=== PATIENT | male | born 1950 | race Caucasian/White ===

== ENCOUNTER 2020-01-04 17:49 | Inpatient (IN) | payer MEDICARE, OTHER ==
[2020-01-04 23:19] VITALS: BP 158/98
[2020-01-04] MEDS ORDERED: Maalox 30 mL Cup PO PRN (23:19)
[2020-01-05] MEDS ORDERED: GLUCAGON HCl 1 MG KIT IM PRN (09:22)
--- NOTE | 2020-01-05 09:59 | Psychiatric Evaluation ---
DATE OF SERVICE: 01/04/2020 PROGRESS NOTE IDENTIFYING DATA: The patient is a 69-year-old male, resident of [facility]. Information obtained by directly interviewing the patient as well as reviewing the admission papers and they are reliable. JUSTIFICATION OF HOSPITALIZATION: The patient is admitted here for acute depression. CHIEF COMPLAINT: "I don't know. I am feeling down." HISTORY OF PRESENT ILLNESS: This is the first psychiatric hospitalization to [facility] for this patient from [facility]. The patient is reported to have been feeling depressed since he has CVA on the right side. The patient was reported to have been feeling depressed, isolative, withdrawn, and has not been able to take care of, able to participate in his ADLs. The patient has been medically cleared and has been sent over here. The patient has multiple medical problems including hypertension, diabetes and as mentioned CVA. Sleep and appetite prior to the hospitalization are reported to be poor. PAST PSYCHIATRIC HISTORY: None reported. MEDICAL HISTORY AND PHYSICAL EXAMINATION: Requested to be done by Dr. Vergara. SUBSTANCE ABUSE HISTORY: None. PHYSICAL OR SEXUAL ABUSE HISTORY: None. MENTAL STATUS EXAMINATION: The patient is a 69-year-old male, looking his stated age, superficially cooperative. Eye contact is noted to be fair. Mood is noted to be depressed. Affect is constricted. The patient denies any command hallucinations. Insight and judgment at this time are noted to be still impaired. Impulse control is noted to be limited. The patient feels frustrated and states that he cannot take care of all the medical issues. The patient has a low energy level. The patient is feeling frustrated. The patient has not been presenting with any suicidal plans at this time. No homicidal ideation is noted. The patient is fully aware that he is in the hospital. Attention span and concentration are noted to be fair at this time. DIAGNOSTIC IMPRESSION: Major depressive disorder, recurrent and severe. IMMEDIATE TREATMENT PLAN: The patient is going to be observed on inpatient unit, provided with supportive psychotherapy. The patient is going to be closely monitored and the patient is going to be started on low dose of Lexapro to help with the depression. Once stabilized, the patient is going to be discharged to the assisted facility for further followup. JOB# [id number]
[2020-01-05] MEDS: Nitroglycerin 0.2 mg/hr Tdm TD SCH ×2 (10:36→21:20)
[2020-01-05] MEDS: INSULIN LISPRO SLIDING SCALE 100 UNITS/ML UNIT SUBQ SCH ×3 (12:02→20:42)
[2020-01-05] MEDS: Escitalopram Oxalate 5 mg Tab PO SCH (13:28)
--- NOTE | 2020-01-05 16:36 | History & Physical ---
ADMIT DATE: 01/05/2020 REASON FOR CONSULTATION: Medical management and clearance. CHIEF COMPLAINT: The patient is admitted on inpatient unit. HISTORY OF PRESENT ILLNESS: This is a 69-year-old male with history of CAD, status post stent, history of stroke with right-sided weakness, diabetes, hypertension and COPD, admitted from nursing facility, cleared medically from [facility]. The patient denies any chest pain or shortness of breath at this time. PAST MEDICAL HISTORY: As mentioned in history of present illness. PAST SURGICAL HISTORY: Status post stent placement x 4 according to the patient. ALLERGIES: No known drug allergies. MEDICATIONS: The patient is on insulin sliding scale, aspirin, Dulcolax, artificial tears, Coreg, clonidine, Plavix, gabapentin, [place], lisinopril and nitroglycerin. FAMILY HISTORY: Noncontributory. SOCIAL HISTORY: The patient is an avid smoker. He used to drink heavily. No intravenous drug use. 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 REVIEW OF SYSTEMS: GENERAL: Complains not feeling well. HEENT: The patient with decreased vision and hard of hearing on the right side. LUNGS: Diagnosis of asthma and history of COPD. HEART: The patient with hypertension and CAD. ABDOMEN: No nausea, vomiting or pain. GENITOURINARY: The patient denies increased frequency or dysuria. NEUROLOGIC: No history of stroke. PSYCHIATRIC: As above. PHYSICAL EXAMINATION: VITAL SIGNS: Blood pressure 168/93, respiration 18, pulse 60, temperature 98.6. GENERAL: This is an elderly male, appears chronically ill. The patient was seen with ____ nurse. NECK: Supple. No mass. LUNGS: Equal breath sounds, otherwise clear to auscultation. HEART: Regular rate and rhythm with systolic ejection murmur. ABDOMEN: Soft, globular. EXTREMITIES: Positive excoriation. NEUROLOGIC: Limited. The patient ____ more so on the left compared to right ____ and refused. LABORATORY DATA: CBC and chem-20 within normal limits. ASSESSMENT: Chronic obstructive pulmonary disease, hypertension, diabetes, thrombocytopenia, platelets of 112, coronary artery disease, status post stent, history of stroke with right-sided weakness, and gait imbalance. Continue ADA diet and insulin sliding scale. He is currently on hypoglycemic medication. Continue aspirin and Plavix. We will continue fall precaution and a wheelchair. We will continue to follow with the patient closely. WILBUR: 01/05/2020 15:37 JOB# [id number]
[2020-01-05] MEDS: Hydrocodone/APAP 10 mg/325 mg Tab PO PRN (18:06)
[2020-01-05] MEDS: Peg-400/Propylene Ophth Soln 5 mL Bottle EACH EYE SCH (20:40)
[2020-01-06] MEDS: Hydrocodone/APAP 10 mg/325 mg Tab PO PRN (03:43)
[2020-01-06] MEDS: INSULIN LISPRO SLIDING SCALE 100 UNITS/ML UNIT SUBQ SCH ×2 (06:43→11:30)
[2020-01-06] MEDS: Escitalopram Oxalate 5 mg Tab PO SCH (08:23)
[2020-01-06] MEDS: Hydrocodone/APAP 5mg/325mg Tab PO PRN ×2 (08:24→21:04)
[2020-01-06] MEDS: Peg-400/Propylene Ophth Soln 5 mL Bottle EACH EYE SCH ×2 (08:27→20:26)
[2020-01-06] MEDS: Nitroglycerin 0.2 mg/hr Tdm TD SCH ×2 (09:30→21:37)
--- NOTE | 2020-01-06 13:16 | Internal Medicine Prog Note ---
Internal Medicine Subjective - Subjective Patient seen and examined:: with staff, chart reviewed Patient is:: awake, verbal, interactive, in wheelchair Per staff patient has:: no adverse event, no episodes of fall, tolerating meds Internal Medicine Objective - Results Recent Labs: Laboratory Last Values POC Glucose 96 MG/DL (70 - 105) 01/06/20 11:58 - Physical Exam Vitals and I&O: Vital Signs Temp 98.0 F 01/06/20 06:06 Pulse 64 01/06/20 09:30 Resp 17 01/06/20 08:00 BP 146/89 01/06/20 09:30 Pulse Ox 94 01/06/20 06:06 Intake & Output 01/05/20 01/06/20 01/06/20 18:59 06:59 18:59 Intake Total 1200 360 Output Total 1 Balance 1200 359 Intake: Oral 1200 360 Output: Urine/Stool Mix 1 Other: # Voids 1 # Bowel Movements 1 0 Active Medications: Current Medications Acetaminophen (Tylenol) 650 mg PO Q4HR PRN PRN Reason: Temperature Above 100 Stop: 03/04/20 23:18 Acetaminophen/Hydrocodone Bitart ([place] 10 Mg/325 Mg) 1 tab PO Q4H PRN PRN Reason: Severe Pain (Scale 7-10) Stop: 03/05/20 09:16 Last Admin: 01/06/20 03:43 Dose: 1 tab Acetaminophen/Hydrocodone Bitart ([place] 5mg/325mg) 1 tab PO Q6H PRN PRN Reason: moderate pain (scale 4-6) Stop: 03/05/20 09:16 Last Admin: 01/06/20 08:24 Dose: 1 tab Al Hydrox/Mg Hydrox/Simethicone (Maalox) 30 ml PO Q4HR PRN PRN Reason: GI DISTRESS Stop: 03/04/20 23:18 Aspirin (Ecotrin) 81 mg PO DAILY GITA Stop: 03/06/20 08:59 Last Admin: 01/06/20 08:23 Dose: 81 mg Bisacodyl (Dulcolax 10 Mg Supp) 10 mg RC Q12HR PRN PRN Reason: Constipation Stop: 03/05/20 09:16 Carvedilol (Coreg) 3.125 mg PO BID [facility] Stop: 03/05/20 09:29 Last Admin: 01/06/20 08:24 Dose: 3.125 mg Clopidogrel Bisulfate (Plavix) 75 mg PO DAILY [facility] Stop: 03/05/20 09:29 Last Admin: 01/06/20 08:23 Dose: 75 mg Dextrose (Glutose 40%) 18.75 gm PO PRN PRN PRN Reason: BS Below 70 if tolerate po Stop: 03/05/20 09:21 Escitalopram Oxalate (Lexapro) 5 mg PO DAILY [facility]; Protocol Stop: 03/05/20 11:59 Last Admin: 01/06/20 08:23 Dose: 5 mg Gabapentin (Neurontin) 100 mg PO TID [facility] Stop: 03/05/20 09:29 Last Admin: 01/06/20 08:23 Dose: 100 mg Glucagon (Glucagen) 1 mg IM PRN PRN PRN Reason: BS Below 70 if not tolerate po Stop: 03/05/20 09:21 Ibuprofen (Motrin) 800 mg PO BID PRN PRN Reason: Pain (Mild 1-3) Stop: 03/05/20 15:23 Last Admin: 01/05/20 16:48 Dose: 800 mg Insulin Human Lispro (Humalog Insulin Sliding Scale) 0 units SUBQ ACHS [facility]; Protocol Stop: 03/05/20 11:29 Last Admin: 01/06/20 11:30 Dose: Not Given Lisinopril (Zestril) 10 mg PO BID [facility] Stop: 03/05/20 09:29 Last Admin: 01/06/20 08:25 Dose: 10 mg Loperamide HCl (Imodium) 4 mg PO Q4HR PRN PRN Reason: Diarrhea Stop: 03/05/20 15:22 Lorazepam (Ativan) 0.5 mg PO Q4HR PRN; Protocol PRN Reason: Anxiety Stop: 02/03/20 23:18 Nitroglycerin (Transderm-Nitro) 1 patch TD Q12H [facility] Stop: 03/05/20 09:29 Last Admin: 01/06/20 09:30 Dose: 1 patch Propylene Glycol (Systane Ophth Soln) 1 drop EACH EYE Q12HR [facility] Stop: 03/05/20 20:59 Zolpidem Tartrate (Ambien) 5 mg PO HS PRN PRN Reason: Insomnia Stop: 03/04/20 23:18 General: demented HEENT: NC/AT, PERRLA Neck: Supple, No JVD, No thyromegaly Lungs: CTAB Cardiovascular: RRR, Normal S1, Normal S2 Abdomen: soft, globular, positive bowel sound Extremities: excoriation, contracture Neurological: unsteady Internal Medicine Assmt/Plan - Assessment Assessment: ASSESSMENT: Chronic obstructive pulmonary disease, hypertension, diabetes, thrombocytopenia, platelets of 112, coronary artery disease, status post stent, history of stroke with right-sided weakness, and gait imbalance. - Plan Plan: plan Continue ADA diet and insulin sliding scale. He is currently on hypoglycemic medication. Continue aspirin and Plavix. We will continue fall precaution and a wheelchair. We will continue to follow with the patient closely.
--- NOTE | 2020-01-06 18:29 | Progress Notes ---
DATE: 01/06/2020 PSYCHIATRIC PROGRESS NOTE SUBJECTIVE: Staff was spoken to. The patient is interviewed. Mood is noted to be depressed. Affect is constricted. The patient is isolative and withdrawn. The patient's coping skills are noted to be very poor. The patient is stating that he has been having electric shock sensations in his right hand. The patient is stating this has been going after his stroke. Coping skills are noted to be very poor. The patient has been having difficult time to cope with the stress. The patient has not been presenting with any suicidal tendencies today, but the patient feels frustrated. ASSESSMENT: The patient is depressed. PLAN: To continue the patient with the current medications. I encouraged the patient to verbalize the concerns rather than to act out. JOB# [id number]
[2020-01-07] MEDS: INSULIN LISPRO SLIDING SCALE 100 UNITS/ML UNIT SUBQ SCH ×3 (06:34→16:48)
[2020-01-07] MEDS: Escitalopram Oxalate 5 mg Tab PO SCH (08:49)
[2020-01-07] MEDS: Nitroglycerin 0.2 mg/hr Tdm TD SCH ×2 (09:49→21:17)
--- NOTE | 2020-01-07 09:58 | Internal Medicine Prog Note ---
Internal Medicine Subjective - Subjective Patient seen and examined:: with staff, chart reviewed Patient is:: awake, verbal, interactive, in wheelchair Per staff patient has:: no adverse event, no episodes of fall, tolerating meds Internal Medicine Objective - Results Recent Labs: Laboratory Last Values POC Glucose 71 MG/DL (70 - 105) 01/07/20 05:32 - Physical Exam Vitals and I&O: Vital Signs Temp 98.1 F 01/07/20 06:39 Pulse 64 01/07/20 09:49 Resp 18 01/07/20 06:39 BP 162/76 01/07/20 09:49 Pulse Ox 96 01/07/20 06:39 Intake & Output 01/06/20 01/07/20 01/07/20 18:59 06:59 18:59 Intake Total 960 480 Output Total 450 Balance 960 30 Intake: Oral 960 480 Output: Urine 450 Other: # Voids 4 1 # Bowel Movements 1 Active Medications: Current Medications Acetaminophen (Tylenol) 650 mg PO Q4HR PRN PRN Reason: Temperature Above 100 Stop: 03/04/20 23:18 Acetaminophen/Hydrocodone Bitart ([place] 10 Mg/325 Mg) 1 tab PO Q4H PRN PRN Reason: Severe Pain (Scale 7-10) Stop: 03/05/20 09:16 Last Admin: 01/06/20 03:43 Dose: 1 tab Acetaminophen/Hydrocodone Bitart ([place] 5mg/325mg) 1 tab PO Q6H PRN PRN Reason: moderate pain (scale 4-6) Stop: 03/05/20 09:16 Last Admin: 01/06/20 21:04 Dose: 1 tab Al Hydrox/Mg Hydrox/Simethicone (Maalox) 30 ml PO Q4HR PRN PRN Reason: GI DISTRESS Stop: 03/04/20 23:18 Aspirin (Ecotrin) 81 mg PO DAILY [facility] Stop: 03/06/20 08:59 Last Admin: 01/07/20 08:47 Dose: 81 mg Bisacodyl (Dulcolax 10 Mg Supp) 10 mg RC Q12HR PRN PRN Reason: Constipation Stop: 03/05/20 09:16 Carvedilol (Coreg) 3.125 mg PO BID [facility] Stop: 03/05/20 09:29 Last Admin: 01/07/20 08:47 Dose: 3.125 mg Clopidogrel Bisulfate (Plavix) 75 mg PO DAILY [facility] Stop: 03/05/20 09:29 Last Admin: 01/07/20 08:49 Dose: 75 mg Dextrose (Glutose 40%) 18.75 gm PO PRN PRN PRN Reason: BS Below 70 if tolerate po Stop: 03/05/20 09:21 Escitalopram Oxalate (Lexapro) 5 mg PO DAILY [facility]; Protocol Stop: 03/05/20 11:59 Last Admin: 01/07/20 08:49 Dose: 5 mg Gabapentin (Neurontin) 100 mg PO TID [facility] Stop: 03/05/20 09:29 Last Admin: 01/07/20 08:50 Dose: 100 mg Glucagon (Glucagen) 1 mg IM PRN PRN PRN Reason: BS Below 70 if not tolerate po Stop: 03/05/20 09:21 Ibuprofen (Motrin) 800 mg PO BID PRN PRN Reason: Pain (Mild 1-3) Stop: 03/05/20 15:23 Last Admin: 01/05/20 16:48 Dose: 800 mg Insulin Human Lispro (Humalog Insulin Sliding Scale) 0 units SUBQ AC [facility]; Protocol Stop: 03/07/20 07:29 Last Admin: 01/07/20 06:34 Dose: Not Given Lisinopril (Zestril) 10 mg PO BID [facility] Stop: 03/05/20 09:29 Last Admin: 01/07/20 08:50 Dose: 10 mg Loperamide HCl (Imodium) 4 mg PO Q4HR PRN PRN Reason: Diarrhea Stop: 03/05/20 15:22 Lorazepam (Ativan) 0.5 mg PO Q4HR PRN; Protocol PRN Reason: Anxiety Stop: 02/03/20 23:18 Nitroglycerin (Transderm-Nitro) 1 patch TD Q12H [facility] Stop: 03/05/20 09:29 Last Admin: 01/07/20 09:49 Dose: 1 patch Propylene Glycol (Systane Ophth Soln) 1 drop EACH EYE Q12HR [facility] Stop: 03/05/20 20:59 Last Admin: 01/06/20 20:26 Dose: 1 drop Zolpidem Tartrate (Ambien) 5 mg PO HS PRN PRN Reason: Insomnia Stop: 03/04/20 23:18 General: demented HEENT: NC/AT, PERRLA Neck: Supple, No JVD, No thyromegaly Lungs: CTAB Cardiovascular: RRR, Normal S1, Normal S2 Abdomen: soft, globular, positive bowel sound Extremities: excoriation, contracture Neurological: unsteady Internal Medicine Assmt/Plan - Assessment Assessment: ASSESSMENT: Chronic obstructive pulmonary disease, hypertension, diabetes, thrombocytopenia, platelets of 112, coronary artery disease, status post stent, history of stroke with right-sided weakness, and gait imbalance. - Plan Plan: plan Continue ADA diet and insulin sliding scale. He is currently on hypoglycemic medication. Continue aspirin and Plavix. We will continue fall precaution and a wheelchair. We will continue to follow with the patient closely. Nutritional Asmnt/Malnutr-PDOC - Dietary Evaluation Malnutrition Findings (Please click <Entered> for more info): Nutritional Asmnt/Malnutrition Start: 01/07/20 09: 16 Text: Status: Active Freq: Protocol: Document 01/07/20 09:30 [email or web address] (Rec: 01/07/20 09:36 MMULHERN ADOLFO- [email or web address]) Nutritional Asmnt/Malnutrition Patient General Information Nutritional Screening Moderate Risk Diagnosis Psychosis Pertinent Medical Hx/Surgical Hx hypertension, diabetes, depression, CVA Subjective Information Patient was admitted from [facility]. Per nursing notes, patient is depressed and withdrawn. Current Diet Order/ Nutrition Support Mechanical soft, 60gm CCHO, ROSA MARIA Patient / S.O Not Indicated Pertinent Medications maalox, dulcolax, Humalog, imodium Pertinent Labs WNL Nutritional Hx/Data Height 1.65 m Height (Calculated Centimeters) 165.1 Current Weight (lbs) 106.141 kg Weight (Calculated Kilograms) 106.1 Weight (Calculated Grams) 881432.6 [place] Body Weight 136 % [place] Body Weight 172 Body Mass Index (BMI) 38.9 Recent Weight Change No Weight Status Obese GI Symptoms GI Symptoms None Last BM 2/7 x 1 Difficult in: None Food Allergies No Cultural/Ethnic/Mandaen Belief none indicated Usual diet at home unknown Skin Integrity/Comment: Jesus Perez Current %PO Good (75-100%) Estimated Nutritional Goals BEE in Kcals: Adj wt of IBW Calories/Kcals/Kg 72.9kg Adj BW Kcals Calculated ~3624-7496 kcal/day (25-30 kcal/kg) Protein: Adj wt of IBW Fluid: ml ~3031-0391 kcal/day (1 ml/kcal ) Nutritional Problem No current Nutrition Prob Problem No nutrition diagnosis at this time Intervention/Recommendation Comments 1. Continue mechanical soft, 60 gm CCHO, ROSA MARIA diet as tolerated by patient. Expected Outcomes/Goals Expected Outcomes/Goals Oral intake >75% of meals, weight stable or trend toward IBW, nutrition related labs WNl F/U LR 01/14
--- NOTE | 2020-01-07 10:02 | Consultation ---
DATE OF CONSULTATION: 01/06/2020 REFERRING PHYSICIAN: Ashish Benavides M.D. TYPE OF CONSULTATION: Psychology. HISTORY OF PRESENT ILLNESS: The patient is a 69-year-old male. The patient is a resident of [facility]. The following is by review of the medical record as well as by the patient's self report. The patient is being admitted for acute depression. Upon interview, the patient states that he is feeling very down and does not know why he feels this way. The staff at the patient's facility reports that he had become very withdrawn and isolative and unable to take care of himself and participate in his ADLs. The patient recently had a CVA on the right side and apparently has been feeling more depressed since this medical event. The patient denied any suicidal ideation, plan or intention at the time of this clinical interview. PAST MEDICAL HISTORY: Please see history and physical by Dr. Vergara. PAST PSYCHIATRIC HISTORY: The patient has a history of depression. The patient is under the care of Dr. Benavides at his placement. SUBSTANCE ABUSE HISTORY: The patient denied any history of alcohol, tobacco or illicit drug use. PSYCHOSOCIAL HISTORY: The patient states that he is and has a daughter named, Annemarie, who is very involved in his care. The patient states that he was raised [employer]al and continues to practice that nondenominational. The patient states he is a high school graduate. The patient did not give any occupational history. The patient is agreeing to return to his placement. The patient states no current legal problems and no physical or sexual abuse history. MENTAL STATUS EXAMINATION: The patient appears to be his stated age. The patient's attitude is cooperative. Eye contact is fair to poor. Speech is spontaneous. Mood is depressed. Affect is depressogenic. Thought process shows to be linear and logical. The patient seems to be frustrated during the clinical interview process. The patient complained of poor sleep and poor appetite. He denied any auditory or visual hallucinations or any delusions. The patient's behavior has been withdrawn and isolative, as well as amotivated and anhedonic. The patient denied any suicidal ideation, plan or intention at this time. Impulse control is adequate. Concentration is fair. Sensorium is alert and oriented to person and place. The patient's memory seems to be intact for immediate dimension; however, short term dimension needs further evaluation. Long-term memory seems to be grossly intact. The patient did not participate in the interpretation of proverbs. Insight is poor. Judgment is compromised. DIAGNOSTIC IMPRESSION AXIS I: Major depressive disorder, recurrent, severe. AXIS II: Deferred. AXIS III: Per Dr. Vergara. TREATMENT PLAN: The patient has been seen by Dr. Ward for psychiatric evaluation and for the management of the patient's psychotropic medications. We will provide supportive psychotherapy to include cognitive behavioral therapy to reduce the patient's depression if the patient is able to participate in this type of therapeutic interaction. We will provide insight oriented therapy as well as coping strategies for phase of life issues to assist the patient in adjusting to his current circumstances. We will provide motivational enhancement for the patient to become compliant and stay compliant with all aspects of his care and treatment. We will provide a daily opportunity to assess for any suicidal ideation, plan or intention and for the patient to verbally contract for safety. We will follow up in 2-3 days to continue this treatment. Thank you Dr. Benavides and Dr. Ward for this consult and the opportunity to participate with you in this patient's care. JOB# [id number] GEOVANI
--- NOTE | 2020-01-07 13:34 | Progress Notes ---
DATE: 01/07/2020 PSYCHIATRIC PROGRESS NOTE SUBJECTIVE: Staff was spoken to. The patient is interviewed. Mood is noted to be depressed. Affect is constricted. The patient is isolative and withdrawn. Coping skills are noted to be very poor. The patient has been preoccupied with his radiating pain in the right hand. Coping skills at this time are noted to be very poor. The patient is not suicidal, but the patient feels frustrated with the multiple medical problems. ASSESSMENT: The patient is still depressed. PLAN: To continue the patient with the supportive therapy, encouraged the patient to verbalize the concerns rather than to act out. [facility]# [id number]
[2020-01-07] MEDS: Peg-400/Propylene Ophth Soln 5 mL Bottle EACH EYE SCH ×2 (13:52→21:18)
[2020-01-08] MEDS: INSULIN LISPRO SLIDING SCALE 100 UNITS/ML UNIT SUBQ SCH ×3 (06:44→16:30)
[2020-01-08] MEDS: Nitroglycerin 0.2 mg/hr Tdm TD SCH ×2 (08:38→20:55)
[2020-01-08] MEDS: Escitalopram Oxalate 5 mg Tab PO SCH (08:38)
[2020-01-08] MEDS: Peg-400/Propylene Ophth Soln 5 mL Bottle EACH EYE SCH ×2 (08:43→20:58)
--- NOTE | 2020-01-08 10:52 | Progress Notes ---
DATE: 01/08/2020 PSYCHIATRIC PROGRESS NOTE SUBJECTIVE: Staff was spoken to. The patient is interviewed. Mood is noted to be depressed. Affect is constricted. The patient is isolative and withdrawn. The patient's blood pressure is running high. Coping skills at this time are noted to be very poor. Sleep and appetite also noted to be very poor. The patient has been having difficult time to cope with the stress. No side effects to the medications are noted at this time. The patient is currently on Lexapro and has been able to tolerate. ASSESSMENT: The patient is still depressed. PLAN: To continue the patient with the supportive therapy and followup. JOB# [id number]
--- NOTE | 2020-01-08 19:19 | Internal Medicine Prog Note ---
Internal Medicine Subjective - Subjective Patient seen and examined:: with staff, chart reviewed Patient is:: awake, verbal, interactive, in wheelchair Per staff patient has:: no adverse event, no episodes of fall, tolerating meds Internal Medicine Objective - Results Recent Labs: Laboratory Last Values POC Glucose 133 MG/DL (70 - 105) H 01/08/20 16:46 - Physical Exam Vitals and I&O: Vital Signs Temp 99.8 F 01/08/20 14:00 Pulse 56 01/08/20 17:08 Resp 17 01/08/20 14:00 BP 154/93 01/08/20 17:08 Pulse Ox 96 01/08/20 14:00 Intake & Output 01/08/20 01/08/20 01/09/20 06:59 18:59 06:59 Intake Total 240 800 Output Total 600 Balance 240 200 Intake: Oral 240 800 Output: Urine 600 Other: # Voids 1 # Bowel Movements 0 Active Medications: Current Medications Acetaminophen (Tylenol) 650 mg PO Q4HR PRN PRN Reason: Temperature Above 100 Stop: 03/04/20 23:18 Last Admin: 01/08/20 10:33 Dose: 650 mg Acetaminophen/Hydrocodone Bitart ([place] 10 Mg/325 Mg) 1 tab PO Q4H PRN PRN Reason: Severe Pain (Scale 7-10) Stop: 03/05/20 09:16 Last Admin: 01/06/20 03:43 Dose: 1 tab Acetaminophen/Hydrocodone Bitart ([place] 5mg/325mg) 1 tab PO Q6H PRN PRN Reason: moderate pain (scale 4-6) Stop: 03/05/20 09:16 Last Admin: 01/06/20 21:04 Dose: 1 tab Al Hydrox/Mg Hydrox/Simethicone (Maalox) 30 ml PO Q4HR PRN PRN Reason: GI DISTRESS Stop: 03/04/20 23:18 Aspirin (Ecotrin) 81 mg PO DAILY [facility] Stop: 03/06/20 08:59 Last Admin: 01/08/20 08:43 Dose: 81 mg Bisacodyl (Dulcolax 10 Mg Supp) 10 mg RC Q12HR PRN PRN Reason: Constipation Stop: 03/05/20 09:16 Carvedilol (Coreg) 6.25 mg PO BID [facility] Stop: 03/08/20 13:44 Last Admin: 01/08/20 17:06 Dose: 6.25 mg Clopidogrel Bisulfate (Plavix) 75 mg PO DAILY [facility] Stop: 03/05/20 09:29 Last Admin: 01/08/20 08:37 Dose: 75 mg Dextrose (Glutose 40%) 18.75 gm PO PRN PRN PRN Reason: BS Below 70 if tolerate po Stop: 03/05/20 09:21 Escitalopram Oxalate (Lexapro) 5 mg PO DAILY [facility]; Protocol Stop: 03/05/20 11:59 Last Admin: 01/08/20 08:38 Dose: 5 mg Gabapentin (Neurontin) 100 mg PO TID [facility] Stop: 03/05/20 09:29 Last Admin: 01/08/20 13:54 Dose: 100 mg Glucagon (Glucagen) 1 mg IM PRN PRN PRN Reason: BS Below 70 if not tolerate po Stop: 03/05/20 09:21 Ibuprofen (Motrin) 800 mg PO BID PRN PRN Reason: Pain (Mild 1-3) Stop: 03/05/20 15:23 Last Admin: 01/05/20 16:48 Dose: 800 mg Insulin Human Lispro (Humalog Insulin Sliding Scale) 0 units SUBQ AC [facility]; Protocol Stop: 03/07/20 07:29 Last Admin: 01/08/20 11:30 Dose: Not Given Lisinopril (Zestril) 10 mg PO BID [facility] Stop: 03/05/20 09:29 Last Admin: 01/08/20 17:08 Dose: 10 mg Loperamide HCl (Imodium) 4 mg PO Q4HR PRN PRN Reason: Diarrhea Stop: 03/05/20 15:22 Lorazepam (Ativan) 0.5 mg PO Q4HR PRN; Protocol PRN Reason: Anxiety Stop: 02/03/20 23:18 Nitroglycerin (Transderm-Nitro) 1 patch TD Q12H [facility] Stop: 03/05/20 09:29 Last Admin: 01/08/20 08:38 Dose: 1 patch Propylene Glycol (Systane Ophth Soln) 1 drop EACH EYE Q12HR [facility] Stop: 03/05/20 20:59 Last Admin: 01/08/20 08:43 Dose: 1 drop Zolpidem Tartrate (Ambien) 5 mg PO HS PRN PRN Reason: Insomnia Stop: 03/04/20 23:18 Last Admin: 01/07/20 21:18 Dose: 5 mg General: demented HEENT: NC/AT, PERRLA Neck: Supple, No JVD, No thyromegaly Lungs: CTAB Cardiovascular: RRR, Normal S1, Normal S2 Abdomen: soft, globular, positive bowel sound Extremities: excoriation, contracture Neurological: unsteady Internal Medicine Assmt/Plan - Assessment Assessment: ASSESSMENT: Chronic obstructive pulmonary disease, hypertension, diabetes, thrombocytopenia, platelets of 112, coronary artery disease, status post stent, history of stroke with right-sided weakness, and gait imbalance. - Plan Plan: plan Continue ADA diet and insulin sliding scale. He is currently on hypoglycemic medication. Continue aspirin and Plavix. We will continue fall precaution and a wheelchair. will titrate coreg up. We will continue to follow with the patient closely. Nutritional Asmnt/Malnutr-PDOC - Dietary Evaluation Malnutrition Findings (Please click <Entered> for more info): Nutritional Asmnt/Malnutrition Start: 01/07/20 09: 16 Text: Status: Complete Freq: Protocol: Document 01/07/20 09:30 MMULN (Rec: 01/07/20 09:36 MMULHERN ADOLFO- [email or web address]) Nutritional Asmnt/Malnutrition Patient General Information Nutritional Screening Moderate Risk Diagnosis Psychosis Pertinent Medical Hx/Surgical Hx hypertension, diabetes, depression, CVA Subjective Information Patient was admitted from [facility]. Per nursing notes, patient is depressed and withdrawn. Patient eating lunch at time of visit. Tolerating current diet with adequate intake. Current Diet Order/ Nutrition Support Mechanical soft, 60gm CCHO, ROSA MARIA Patient / S.O Not Indicated Pertinent Medications maalox, dulcolax, Humalog, imodium Pertinent Labs WNL Nutritional Hx/Data Height 1.65 m Height (Calculated Centimeters) 165.1 Current Weight (lbs) 106.141 kg Weight (Calculated Kilograms) 106.1 Weight (Calculated Grams) 354677.6 [place] Body Weight 136 % [place] Body Weight 172 Body Mass Index (BMI) 38.9 Recent Weight Change No Weight Status Obese GI Symptoms GI Symptoms None Last BM 2/7 x 1 Difficult in: None Food Allergies No Cultural/Ethnic/Pentecostalism Belief none indicated Usual diet at home unknown Skin Integrity/Comment: Jesus Perez Current %PO Good (75-100%) Estimated Nutritional Goals BEE in Kcals: Adj wt of IBW Calories/Kcals/Kg 72.9kg Adj BW Kcals Calculated ~4717-0943 kcal/day (25-30 kcal/kg) Protein: Adj wt of IBW Protein g/k-1.2 gm/kg Protein Calculated ~70-85gm/day Fluid: ml ~4591-8957 kcal/day (1 ml/kcal ) Nutritional Problem No current Nutrition Prob Problem No nutrition diagnosis at this time Intervention/Recommendation Comments 1. Continue mechanical soft, 60 gm CCHO, ROSA MARIA diet as tolerated by patient. Expected Outcomes/Goals Expected Outcomes/Goals Oral intake >75% of meals, weight stable or trend toward IBW, nutrition related labs WNl F/U LR 01/14-
[2020-01-09] MEDS: INSULIN LISPRO SLIDING SCALE 100 UNITS/ML UNIT SUBQ SCH ×3 (06:31→16:48)
[2020-01-09] MEDS: Escitalopram Oxalate 5 mg Tab PO SCH (08:10)
[2020-01-09] MEDS: Peg-400/Propylene Ophth Soln 5 mL Bottle EACH EYE SCH ×2 (08:18→20:42)
[2020-01-09] MEDS: Nitroglycerin 0.2 mg/hr Tdm TD SCH ×2 (10:02→22:00)
--- NOTE | 2020-01-09 12:59 | Internal Medicine Prog Note ---
Internal Medicine Subjective - Subjective Patient seen and examined:: with staff, chart reviewed Patient is:: awake, verbal, interactive, in wheelchair Per staff patient has:: no adverse event, no episodes of fall, tolerating meds Internal Medicine Objective - Results Recent Labs: Laboratory Last Values POC Glucose 92 MG/DL (70 - 105) 01/09/20 11:56 - Physical Exam Vitals and I&O: Vital Signs Temp 99.3 F 01/08/20 19:56 Pulse 73 01/09/20 10:02 Resp 17 01/09/20 08:00 BP 149/82 01/09/20 10:02 Pulse Ox 93 01/08/20 19:56 Intake & Output 01/08/20 01/09/20 01/09/20 18:59 06:59 18:59 Intake Total 800 240 Output Total 600 Balance 200 240 Intake: Oral 800 240 Output: Urine 600 Other: # Voids 2 # Bowel Movements 0 Active Medications: Current Medications Acetaminophen (Tylenol) 650 mg PO Q4HR PRN PRN Reason: Temperature Above 100 Stop: 03/04/20 23:18 Last Admin: 01/08/20 10:33 Dose: 650 mg Acetaminophen/Hydrocodone Bitart ([place] 10 Mg/325 Mg) 1 tab PO Q4H PRN PRN Reason: Severe Pain (Scale 7-10) Stop: 03/05/20 09:16 Last Admin: 01/06/20 03:43 Dose: 1 tab Acetaminophen/Hydrocodone Bitart ([place] 5mg/325mg) 1 tab PO Q6H PRN PRN Reason: moderate pain (scale 4-6) Stop: 03/05/20 09:16 Last Admin: 01/06/20 21:04 Dose: 1 tab Al Hydrox/Mg Hydrox/Simethicone (Maalox) 30 ml PO Q4HR PRN PRN Reason: GI DISTRESS Stop: 03/04/20 23:18 Aspirin (Ecotrin) 81 mg PO DAILY [facility] Stop: 03/06/20 08:59 Last Admin: 01/09/20 08:10 Dose: 81 mg Bisacodyl (Dulcolax 10 Mg Supp) 10 mg RC Q12HR PRN PRN Reason: Constipation Stop: 03/05/20 09:16 Carvedilol (Coreg) 6.25 mg PO BID [facility] Stop: 03/08/20 13:44 Last Admin: 01/09/20 08:16 Dose: 6.25 mg Clopidogrel Bisulfate (Plavix) 75 mg PO DAILY [facility] Stop: 03/05/20 09:29 Last Admin: 01/09/20 08:10 Dose: 75 mg Dextrose (Glutose 40%) 18.75 gm PO PRN PRN PRN Reason: BS Below 70 if tolerate po Stop: 03/05/20 09:21 Escitalopram Oxalate (Lexapro) 5 mg PO DAILY [facility]; Protocol Stop: 03/05/20 11:59 Last Admin: 01/09/20 08:10 Dose: 5 mg Gabapentin (Neurontin) 100 mg PO TID [facility] Stop: 03/05/20 09:29 Last Admin: 01/09/20 08:10 Dose: 100 mg Glucagon (Glucagen) 1 mg IM PRN PRN PRN Reason: BS Below 70 if not tolerate po Stop: 03/05/20 09:21 Ibuprofen (Motrin) 800 mg PO BID PRN PRN Reason: Pain (Mild 1-3) Stop: 03/05/20 15:23 Last Admin: 01/05/20 16:48 Dose: 800 mg Insulin Human Lispro (Humalog Insulin Sliding Scale) 0 units SUBQ AC [facility]; Protocol Stop: 03/07/20 07:29 Last Admin: 01/09/20 11:45 Dose: Not Given Lisinopril (Zestril) 10 mg PO BID [facility] Stop: 03/05/20 09:29 Last Admin: 01/09/20 08:15 Dose: 10 mg Loperamide HCl (Imodium) 4 mg PO Q4HR PRN PRN Reason: Diarrhea Stop: 03/05/20 15:22 Lorazepam (Ativan) 0.5 mg PO Q4HR PRN; Protocol PRN Reason: Anxiety Stop: 02/03/20 23:18 Nitroglycerin (Transderm-Nitro) 1 patch TD Q12H [facility] Stop: 03/05/20 09:29 Last Admin: 01/09/20 10:02 Dose: 1 patch Propylene Glycol (Systane Ophth Soln) 1 drop EACH EYE Q12HR [facility] Stop: 03/05/20 20:59 Last Admin: 01/09/20 08:18 Dose: 1 drop Zolpidem Tartrate (Ambien) 5 mg PO HS PRN PRN Reason: Insomnia Stop: 03/04/20 23:18 Last Admin: 01/08/20 20:59 Dose: 5 mg General: demented HEENT: NC/AT, PERRLA Neck: Supple, No JVD, No thyromegaly Lungs: CTAB Cardiovascular: RRR, Normal S1, Normal S2 Abdomen: soft, globular, positive bowel sound Extremities: excoriation, contracture Neurological: unsteady Internal Medicine Assmt/Plan - Assessment Assessment: ASSESSMENT: Chronic obstructive pulmonary disease, hypertension, diabetes, thrombocytopenia, platelets of 112, coronary artery disease, status post stent, history of stroke with right-sided weakness, and gait imbalance. - Plan Plan: plan Continue ADA diet and insulin sliding scale. He is currently on hypoglycemic medication. Continue aspirin and Plavix. We will continue fall precaution and a wheelchair. will titrate coreg up. We will continue to follow with the patient closely. Nutritional Asmnt/Malnutr-PDOC - Dietary Evaluation Malnutrition Findings (Please click <Entered> for more info): Nutritional Asmnt/Malnutrition Start: 01/07/20 09: 16 Text: Status: Complete Freq: Protocol: Document 01/07/20 09:30 MMULN (Rec: 01/07/20 09:36 MMULHERN ADOLFO- FNS1) Nutritional Asmnt/Malnutrition Patient General Information Nutritional Screening Moderate Risk Diagnosis Psychosis Pertinent Medical Hx/Surgical Hx hypertension, diabetes, depression, CVA Subjective Information Patient was admitted from [facility]. Per nursing notes, patient is depressed and withdrawn. Patient eating lunch at time of visit. Tolerating current diet with adequate intake. Current Diet Order/ Nutrition Support Mechanical soft, 60gm CCHO, ROSA MARIA Patient / S.O Not Indicated Pertinent Medications maalox, dulcolax, Humalog, imodium Pertinent Labs WNL Nutritional Hx/Data Height 1.65 m Height (Calculated Centimeters) 165.1 Current Weight (lbs) 106.141 kg Weight (Calculated Kilograms) 106.1 Weight (Calculated Grams) 664880.6 [place] Body Weight 136 % [place] Body Weight 172 Body Mass Index (BMI) 38.9 Recent Weight Change No Weight Status Obese GI Symptoms GI Symptoms None Last BM 2/7 x 1 Difficult in: None Food Allergies No Cultural/Ethnic/Worship Belief none indicated Usual diet at home unknown Skin Integrity/Comment: Jesus Perez Current %PO Good (75-100%) Estimated Nutritional Goals BEE in Kcals: Adj wt of IBW Calories/Kcals/Kg 72.9kg Adj BW Kcals Calculated ~1126-9153 kcal/day (25-30 kcal/kg) Protein: Adj wt of IBW Protein g/k-1.2 gm/kg Protein Calculated ~70-85gm/day Fluid: ml ~8473-1115 kcal/day (1 ml/kcal ) Nutritional Problem No current Nutrition Prob Problem No nutrition diagnosis at this time Intervention/Recommendation Comments 1. Continue mechanical soft, 60 gm CCHO, ROSA MARIA diet as tolerated by patient. Expected Outcomes/Goals Expected Outcomes/Goals Oral intake >75% of meals, weight stable or trend toward IBW, nutrition related labs WNl F/U LR 01/14-
--- NOTE | 2020-01-10 00:05 | Progress Notes ---
DATE: 01/09/2020 PSYCHIATRIC PROGRESS NOTE SUBJECTIVE: Staff was spoken to. The patient is interviewed. Mood is noted to be irritable. Affect is constricted. Insight and judgment at this time are noted to be still impaired. Impulse control is noted to be limited. Coping skills are also noted to be limited. The patient has been having difficult time to cope with the stress. No side effects to the medications are noted. The patient is still complaining of pain in the arm. ASSESSMENT: The patient is still depressed. PLAN: To continue the patient with the supportive therapy and follow up. JOB# [id number]
[2020-01-10] MEDS: Hydrocodone/APAP 10 mg/325 mg Tab PO PRN ×2 (05:35→10:01)
[2020-01-10] MEDS: INSULIN LISPRO SLIDING SCALE 100 UNITS/ML UNIT SUBQ SCH ×2 (06:38→11:57)
[2020-01-10] MEDS: Nitroglycerin 0.2 mg/hr Tdm TD SCH ×2 (09:52→21:30)
[2020-01-10] MEDS: Escitalopram Oxalate 5 mg Tab PO SCH (09:54)
[2020-01-10] MEDS: Peg-400/Propylene Ophth Soln 5 mL Bottle EACH EYE SCH ×2 (09:58→20:58)
[2020-01-10] MEDS ORDERED: INSULIN LISPRO SLIDING SCALE 100 UNITS/ML UNIT SUBQ SCH (13:05)
--- NOTE | 2020-01-10 13:07 | Internal Medicine Prog Note ---
Internal Medicine Subjective - Subjective Patient seen and examined:: with staff, chart reviewed Patient is:: awake, verbal, interactive, in wheelchair Per staff patient has:: no adverse event, no episodes of fall, tolerating meds Internal Medicine Objective - Results Recent Labs: Laboratory Last Values POC Glucose 91 MG/DL (70 - 105) 01/10/20 05:56 - Physical Exam Vitals and I&O: Vital Signs Temp 98 F 01/10/20 06:01 Pulse 52 01/10/20 11:02 Resp 20 01/10/20 06:01 BP 178/96 01/10/20 11:02 Pulse Ox 96 01/10/20 06:01 Intake & Output 01/09/20 01/10/20 01/10/20 18:59 06:59 18:59 Intake Total 1000 120 Balance 1000 120 Intake: Oral 1000 120 Other: # Voids 4 3 # Bowel Movements 0 0 Active Medications: Current Medications Acetaminophen (Tylenol) 650 mg PO Q4HR PRN PRN Reason: Temperature Above 100 Stop: 03/04/20 23:18 Last Admin: 01/08/20 10:33 Dose: 650 mg Acetaminophen/Hydrocodone Bitart ([place] 10 Mg/325 Mg) 1 tab PO Q4H PRN PRN Reason: Severe Pain (Scale 7-10) Stop: 03/05/20 09:16 Last Admin: 01/10/20 10:01 Dose: 1 tab Acetaminophen/Hydrocodone Bitart ([place] 5mg/325mg) 1 tab PO Q6H PRN PRN Reason: moderate pain (scale 4-6) Stop: 03/05/20 09:16 Last Admin: 01/06/20 21:04 Dose: 1 tab Al Hydrox/Mg Hydrox/Simethicone (Maalox) 30 ml PO Q4HR PRN PRN Reason: GI DISTRESS Stop: 03/04/20 23:18 Aspirin (Ecotrin) 81 mg PO DAILY [facility] Stop: 03/06/20 08:59 Last Admin: 01/10/20 09:57 Dose: 81 mg Bisacodyl (Dulcolax 10 Mg Supp) 10 mg RC Q12HR PRN PRN Reason: Constipation Stop: 03/05/20 09:16 Carvedilol (Coreg) 3.25 mg PO BID [facility] Stop: 03/10/20 16:59 Clopidogrel Bisulfate (Plavix) 75 mg PO DAILY [facility] Stop: 03/05/20 09:29 Last Admin: 01/10/20 09:57 Dose: 75 mg Dextrose (Glutose 40%) 18.75 gm PO PRN PRN PRN Reason: BS Below 70 if tolerate po Stop: 03/05/20 09:21 Escitalopram Oxalate (Lexapro) 5 mg PO DAILY [facility]; Protocol Stop: 03/05/20 11:59 Last Admin: 01/10/20 09:54 Dose: 5 mg Gabapentin (Neurontin) 100 mg PO TID [facility] Stop: 03/05/20 09:29 Last Admin: 01/10/20 09:54 Dose: 100 mg Glucagon (Glucagen) 1 mg IM PRN PRN PRN Reason: BS Below 70 if not tolerate po Stop: 03/05/20 09:21 Ibuprofen (Motrin) 800 mg PO BID PRN PRN Reason: Pain (Mild 1-3) Stop: 03/05/20 15:23 Last Admin: 01/05/20 16:48 Dose: 800 mg Insulin Human Lispro (Humalog Insulin Sliding Scale) 0 units SUBQ AC [facility]; Protocol Stop: 03/07/20 07:29 Lisinopril (Zestril) 20 mg PO BID [facility] Stop: 03/10/20 16:59 Loperamide HCl (Imodium) 4 mg PO Q4HR PRN PRN Reason: Diarrhea Stop: 03/05/20 15:22 Lorazepam (Ativan) 0.5 mg PO Q4HR PRN; Protocol PRN Reason: Anxiety Stop: 02/03/20 23:18 Nitroglycerin (Transderm-Nitro) 1 patch TD Q12H [facility] Stop: 03/05/20 09:29 Last Admin: 01/10/20 09:52 Dose: 1 patch Propylene Glycol (Systane Ophth Soln) 1 drop EACH EYE Q12HR [facility] Stop: 03/05/20 20:59 Last Admin: 01/10/20 09:58 Dose: 1 drop Zolpidem Tartrate (Ambien) 5 mg PO HS PRN PRN Reason: Insomnia Stop: 03/04/20 23:18 Last Admin: 01/09/20 20:46 Dose: 5 mg General: demented HEENT: NC/AT, PERRLA Neck: Supple, No JVD, No thyromegaly Lungs: CTAB Cardiovascular: RRR, Normal S1, Normal S2 Abdomen: soft, globular, positive bowel sound Extremities: excoriation, contracture Neurological: unsteady Internal Medicine Assmt/Plan - Assessment Assessment: ASSESSMENT: Chronic obstructive pulmonary disease, hypertension, diabetes, thrombocytopenia, platelets of 112, coronary artery disease, status post stent, history of stroke with right-sided weakness, and gait imbalance. - Plan Plan: plan Continue ADA diet and insulin sliding scale. He is currently on hypoglycemic medication. Continue aspirin and Plavix. We will continue fall precaution and a wheelchair. will titrate coreg up. We will continue to follow with the patient closely. Nutritional Asmnt/Malnutr-PDOC - Dietary Evaluation Malnutrition Findings (Please click <Entered> for more info): Nutritional Asmnt/Malnutrition Start: 01/07/20 09: 16 Text: Status: Complete Freq: Protocol: Document 01/07/20 09:30 MMULHERN (Rec: 01/07/20 09:36 MMULHERN ADOLFO- FNS1) Nutritional Asmnt/Malnutrition Patient General Information Nutritional Screening Moderate Risk Diagnosis Psychosis Pertinent Medical Hx/Surgical Hx hypertension, diabetes, depression, CVA Subjective Information Patient was admitted from [facility]. Per nursing notes, patient is depressed and withdrawn. Patient eating lunch at time of visit. Tolerating current diet with adequate intake. Current Diet Order/ Nutrition Support Mechanical soft, 60gm CCHO, ROSA MARIA Patient / S.O Not Indicated Pertinent Medications maalox, dulcolax, Humalog, imodium Pertinent Labs WNL Nutritional Hx/Data Height 1.65 m Height (Calculated Centimeters) 165.1 Current Weight (lbs) 106.141 kg Weight (Calculated Kilograms) 106.1 Weight (Calculated Grams) 022009.6 [place] Body Weight 136 % [place] Body Weight 172 Body Mass Index (BMI) 38.9 Recent Weight Change No Weight Status Obese GI Symptoms GI Symptoms None Last BM 2/7 x 1 Difficult in: None Food Allergies No Cultural/Ethnic/Muslim Belief none indicated Usual diet at home unknown Skin Integrity/Comment: Jesus Perez Current %PO Good (75-100%) Estimated Nutritional Goals BEE in Kcals: Adj wt of IBW Calories/Kcals/Kg 72.9kg Adj BW Kcals Calculated ~4148-9076 kcal/day (25-30 kcal/kg) Protein: Adj wt of IBW Protein g/k-1.2 gm/kg Protein Calculated ~70-85gm/day Fluid: ml ~4628-7371 kcal/day (1 ml/kcal ) Nutritional Problem No current Nutrition Prob Problem No nutrition diagnosis at this time Intervention/Recommendation Comments 1. Continue mechanical soft, 60 gm CCHO, ROSA MARIA diet as tolerated by patient. Expected Outcomes/Goals Expected Outcomes/Goals Oral intake >75% of meals, weight stable or trend toward IBW, nutrition related labs WNl F/U LR 01/14-
--- NOTE | 2020-01-10 20:08 | Progress Notes ---
DATE: 01/09/2020 PSYCHOLOGY PROGRESS NOTE SUBJECTIVE: The patient is seen and is interviewed. Case is discussed with staff. The patient presents as less irritable this visit; however, the patient complained of pain in his right arm. The patient was not able to identify if this was a throbbing pain or constant pain. He was unable to assess fis pain on the pain scale, i.e., which number it might be. The patient requested to see the medical doctor. Nursing staff was informed. The patient is having difficulty coping with stress. OBJECTIVE: Mood is passive and disinterested. Affect is blunted. Thought process shows to be concrete with some confusion and singularly focused on the pain in his right arm. The patient denied any hallucinations or delusions. The patient has been compliant with his medication according to the staff. ASSESSMENT AND PLAN: The patient's depression persists. PLAN: We will continue supportive psychotherapy, which includes insight oriented therapy and cognitive behavioral therapy to reduce the patient's depression. We will provide coping strategies for phase of life issues. The patient states that he does use his shannan-based beliefs to help him cope. We will review this type of approach. We will encourage the patient to stay compliant with all aspects of his care and treatment. We will follow up in 2-3 days to continue the present treatment, if the patient remains on the unit and is able to demonstrate the capacity to benefit from psychology services. JOB# [id number] GEOVANI
[2020-01-11] MEDS: Hydrocodone/APAP 10 mg/325 mg Tab PO PRN ×2 (04:02→10:15)
[2020-01-11] MEDS: INSULIN LISPRO SLIDING SCALE 100 UNITS/ML UNIT SUBQ SCH (06:34)
[2020-01-11] MEDS: Peg-400/Propylene Ophth Soln 5 mL Bottle EACH EYE SCH ×2 (08:21→21:39)
[2020-01-11] MEDS: Nitroglycerin 0.2 mg/hr Tdm TD SCH ×2 (08:47→21:39)
--- NOTE | 2020-01-11 09:12 | Progress Notes ---
DATE: 01/10/2020 PSYCHIATRIC PROGRESS NOTE SUBJECTIVE: Staff was spoken to. The patient is interviewed. Mood is noted to be anxious. The patient continues to be isolative and withdrawn. The patient is still preoccupied with his electrical shock sensation ____. The patient has been stating that he has been trying to attend the groups at this time. No major side effects to the medications are noted. ASSESSMENT: The patient is still depressed. PLAN: Plan is to continue the patient with the supportive therapy and followup. JOB# [id number]
--- NOTE | 2020-01-11 13:21 | Internal Medicine Prog Note ---
Internal Medicine Subjective - Subjective Patient seen and examined:: with staff, chart reviewed Patient is:: awake, verbal, interactive, in wheelchair Per staff patient has:: no adverse event, no episodes of fall, tolerating meds Internal Medicine Objective - Results Recent Labs: Laboratory Last Values POC Glucose 81 MG/DL (70 - 105) 01/11/20 05:50 - Physical Exam Vitals and I&O: Vital Signs Temp 98.3 F 01/11/20 06:02 Pulse 52 01/11/20 08:47 Resp 20 01/11/20 06:02 BP 175/94 01/11/20 08:47 Pulse Ox 96 01/11/20 06:02 Intake & Output 01/10/20 01/11/20 01/11/20 18:59 06:59 18:59 Intake Total 600 120 Balance 600 120 Intake: Oral 600 120 Other: # Voids 3 # Bowel Movements 1 0 Active Medications: Current Medications Acetaminophen (Tylenol) 650 mg PO Q4HR PRN PRN Reason: Temperature Above 100 Stop: 03/04/20 23:18 Last Admin: 01/08/20 10:33 Dose: 650 mg Acetaminophen/Hydrocodone Bitart ([place] 10 Mg/325 Mg) 1 tab PO Q4H PRN PRN Reason: Severe Pain (Scale 7-10) Stop: 03/05/20 09:16 Last Admin: 01/11/20 10:15 Dose: 1 tab Acetaminophen/Hydrocodone Bitart ([place] 5mg/325mg) 1 tab PO Q6H PRN PRN Reason: moderate pain (scale 4-6) Stop: 03/05/20 09:16 Last Admin: 01/06/20 21:04 Dose: 1 tab Al Hydrox/Mg Hydrox/Simethicone (Maalox) 30 ml PO Q4HR PRN PRN Reason: GI DISTRESS Stop: 03/04/20 23:18 Aspirin (Ecotrin) 81 mg PO DAILY [facility] Stop: 03/06/20 08:59 Last Admin: 01/11/20 08:22 Dose: 81 mg Bisacodyl (Dulcolax 10 Mg Supp) 10 mg RC Q12HR PRN PRN Reason: Constipation Stop: 03/05/20 09:16 Carvedilol (Coreg) 3.125 mg PO BID [facility] Stop: 03/10/20 18:14 Last Admin: 01/11/20 08:22 Dose: 3.125 mg Clopidogrel Bisulfate (Plavix) 75 mg PO DAILY [facility] Stop: 03/05/20 09:29 Last Admin: 01/11/20 08:22 Dose: 75 mg Dextrose (Glutose 40%) 18.75 gm PO PRN PRN PRN Reason: BS Below 70 if tolerate po Stop: 03/05/20 09:21 Escitalopram Oxalate (Lexapro) 10 mg PO DAILY [facility]; Protocol Stop: 03/11/20 08:59 Last Admin: 01/11/20 08:47 Dose: 10 mg Gabapentin (Neurontin) 100 mg PO TID [facility] Stop: 03/05/20 09:29 Last Admin: 01/11/20 08:21 Dose: 100 mg Glucagon (Glucagen) 1 mg IM PRN PRN PRN Reason: BS Below 70 if not tolerate po Stop: 03/05/20 09:21 Ibuprofen (Motrin) 800 mg PO BID PRN PRN Reason: Pain (Mild 1-3) Stop: 03/05/20 15:23 Last Admin: 01/05/20 16:48 Dose: 800 mg Insulin Human Lispro (Humalog Insulin Sliding Scale) 0 units SUBQ QAM@0630 [facility] ; Protocol Stop: 03/11/20 06:29 Last Admin: 01/11/20 06:34 Dose: Not Given Lisinopril (Zestril) 20 mg PO BID [facility] Stop: 03/10/20 16:59 Last Admin: 01/11/20 08:22 Dose: 20 mg Loperamide HCl (Imodium) 4 mg PO Q4HR PRN PRN Reason: Diarrhea Stop: 03/05/20 15:22 Lorazepam (Ativan) 0.5 mg PO Q4HR PRN; Protocol PRN Reason: Anxiety Stop: 02/03/20 23:18 Nitroglycerin (Transderm-Nitro) 1 patch TD Q12H [facility] Stop: 03/05/20 09:29 Last Admin: 01/11/20 08:47 Dose: 1 patch Propylene Glycol (Systane Ophth Soln) 1 drop EACH EYE Q12HR [facility] Stop: 03/05/20 20:59 Last Admin: 01/11/20 08:21 Dose: 1 drop Zolpidem Tartrate (Ambien) 5 mg PO HS PRN PRN Reason: Insomnia Stop: 03/04/20 23:18 Last Admin: 01/09/20 20:46 Dose: 5 mg General: demented HEENT: NC/AT, PERRLA Neck: Supple, No JVD, No thyromegaly Lungs: CTAB Cardiovascular: RRR, Normal S1, Normal S2 Abdomen: soft, globular, positive bowel sound Extremities: excoriation, contracture Neurological: unsteady Internal Medicine Assmt/Plan - Assessment Assessment: ASSESSMENT: Chronic obstructive pulmonary disease, hypertension, diabetes, thrombocytopenia, platelets of 112, coronary artery disease, status post stent, history of stroke with right-sided weakness, and gait imbalance. - Plan Plan: plan Continue ADA diet and insulin sliding scale. He is currently on hypoglycemic medication. Continue aspirin and Plavix. We will continue fall precaution and a wheelchair. will titrate coreg up. We will continue to follow with the patient closely. Nutritional Asmnt/Malnutr-PDOC - Dietary Evaluation Malnutrition Findings (Please click <Entered> for more info): Nutritional Asmnt/Malnutrition Start: 01/07/20 09: 16 Text: Status: Complete Freq: Protocol: Document 01/07/20 09:30 MMMITESH (Rec: 01/07/20 09:36 MMULHERKam MATA- [email or web address]) Nutritional Asmnt/Malnutrition Patient General Information Nutritional Screening Moderate Risk Diagnosis Psychosis Pertinent Medical Hx/Surgical Hx hypertension, diabetes, depression, CVA Subjective Information Patient was admitted from [facility]. Per nursing notes, patient is depressed and withdrawn. Patient eating lunch at time of visit. Tolerating current diet with adequate intake. Current Diet Order/ Nutrition Support Mechanical soft, 60gm CCHO, ROSA MARIA Patient / S.O Not Indicated Pertinent Medications maalox, dulcolax, Humalog, imodium Pertinent Labs WNL Nutritional Hx/Data Height 1.65 m Height (Calculated Centimeters) 165.1 Current Weight (lbs) 106.141 kg Weight (Calculated Kilograms) 106.1 Weight (Calculated Grams) 691651.6 [place] Body Weight 136 % [place] Body Weight 172 Body Mass Index (BMI) 38.9 Recent Weight Change No Weight Status Obese GI Symptoms GI Symptoms None Last BM 2/7 x 1 Difficult in: None Food Allergies No Cultural/Ethnic/Holiness Belief none indicated Usual diet at home unknown Skin Integrity/Comment: Jesus Perez Current %PO Good (75-100%) Estimated Nutritional Goals BEE in Kcals: Adj wt of IBW Calories/Kcals/Kg 72.9kg Adj BW Kcals Calculated ~3849-5213 kcal/day (25-30 kcal/kg) Protein: Adj wt of IBW Protein g/k-1.2 gm/kg Protein Calculated ~70-85gm/day Fluid: ml ~6825-1074 kcal/day (1 ml/kcal ) Nutritional Problem No current Nutrition Prob Problem No nutrition diagnosis at this time Intervention/Recommendation Comments 1. Continue mechanical soft, 60 gm CCHO, ROSA MARIA diet as tolerated by patient. Expected Outcomes/Goals Expected Outcomes/Goals Oral intake >75% of meals, weight stable or trend toward IBW, nutrition related labs WNl F/U LR 01/14-
--- NOTE | 2020-01-11 13:39 | Progress Notes ---
DATE: 01/11/2020 PSYCHIATRIC PROGRESS NOTE SUBJECTIVE: Staff was spoken to. The patient is interviewed. Mood is noted to be anxious. The patient is still complaining of pain in the left forearm. The patient is stating that since the stroke, he has been having difficult time to cope with the stress. The patient is currently on escitalopram 5 mg, I am planning to increase the dose to 10 mg today and encourage the patient to comply with the medication. The patient's sleep is noted to be poor. Appetite is noted to be improving. No major side effects to the medications are noted at this time. The patient, however, continues to be isolative and withdrawn. The patient has been having problem with her short-term memory and getting confused, easily. ASSESSMENT: The patient is still depressed. PLAN: Follow the patient with the above changes in the medications and followup. JOB# [id number]
[2020-01-12] MEDS: Hydrocodone/APAP 10 mg/325 mg Tab PO PRN ×2 (05:47→15:06)
[2020-01-12] MEDS: INSULIN LISPRO SLIDING SCALE 100 UNITS/ML UNIT SUBQ SCH (06:08)
[2020-01-12] MEDS: Peg-400/Propylene Ophth Soln 5 mL Bottle EACH EYE SCH ×2 (08:53→20:36)
[2020-01-12] MEDS: Nitroglycerin 0.2 mg/hr Tdm TD SCH ×3 (08:56→21:39)
--- NOTE | 2020-01-12 11:13 | Progress Notes ---
DATE: 01/11/2020 PSYCHOLOGY PROGRESS NOTE SUBJECTIVE: The patient is seen and is interviewed. Case is discussed with staff. The patient presents as somewhat anxious and is still complaining of pain in his right arm. The patient states he also has pain in his left arm. The patient stated that this pain and its onset was post-stroke. Appetite is fair. Sleep is fair. Staff reports that he continues to be isolative and withdrawn and non-participatory in the milieu therapy. The patient seems to be confused; more so during this visit. OBJECTIVE: Mood is anxious. Affect is broad. Thought process shows to be confused, but linear and concrete. The patient was able to respond to simple commands, but was unable to provide information on the other clinical questions. The pain in his arms may be somatic. This needs further evaluation. The patient has limited insight. The patient's behavior has been withdrawn and isolative. ASSESSMENT: The patient's depression persists. PLAN: We will continue to provide supportive psychotherapy, which includes coping strategies for phase of life issues. We provided reality testing and reality integration. We provided remotivation for the patient to stay compliant with his care and treatment plan as well as to participate in the milieu therapy. The patient is not very psychologically minded. Therefore, we will reassess the patient's capacity to benefit from psychology services on the next visit. JOB# [id number] GEOVANI
--- NOTE | 2020-01-12 15:28 | Internal Medicine Prog Note ---
Internal Medicine Subjective - Subjective Patient seen and examined:: with staff, chart reviewed Patient is:: awake, verbal, interactive, in wheelchair Per staff patient has:: no adverse event, no episodes of fall, tolerating meds Internal Medicine Objective - Results Recent Labs: Laboratory Last Values POC Glucose 86 MG/DL (70 - 105) 01/12/20 05:56 - Physical Exam Vitals and I&O: Vital Signs Temp 97.5 F 01/12/20 06:41 Pulse 58 01/12/20 11:33 Resp 16 01/12/20 08:00 BP 173/78 01/12/20 11:33 Pulse Ox 96 01/12/20 06:41 Intake & Output 01/11/20 01/12/20 01/12/20 18:59 06:59 18:59 Intake Total 1200 120 Balance 1200 120 Intake: Oral 1200 120 Other: # Voids 3 # Bowel Movements 2 Active Medications: Current Medications Acetaminophen (Tylenol) 650 mg PO Q4HR PRN PRN Reason: Temperature Above 100 Stop: 03/04/20 23:18 Last Admin: 01/08/20 10:33 Dose: 650 mg Acetaminophen/Hydrocodone Bitart ([place] 10 Mg/325 Mg) 1 tab PO Q4H PRN PRN Reason: Severe Pain (Scale 7-10) Stop: 03/05/20 09:16 Last Admin: 01/12/20 15:06 Dose: 1 tab Acetaminophen/Hydrocodone Bitart ([place] 5mg/325mg) 1 tab PO Q6H PRN PRN Reason: moderate pain (scale 4-6) Stop: 03/05/20 09:16 Last Admin: 01/06/20 21:04 Dose: 1 tab Al Hydrox/Mg Hydrox/Simethicone (Maalox) 30 ml PO Q4HR PRN PRN Reason: GI DISTRESS Stop: 03/04/20 23:18 Aspirin (Ecotrin) 81 mg PO DAILY [facility] Stop: 03/06/20 08:59 Last Admin: 01/12/20 08:54 Dose: 81 mg Bisacodyl (Dulcolax 10 Mg Supp) 10 mg RC Q12HR PRN PRN Reason: Constipation Stop: 03/05/20 09:16 Carvedilol (Coreg) 3.125 mg PO BID [facility] Stop: 03/10/20 18:14 Last Admin: 01/12/20 08:55 Dose: 3.125 mg Clopidogrel Bisulfate (Plavix) 75 mg PO DAILY [facility] Stop: 03/05/20 09:29 Last Admin: 01/12/20 08:54 Dose: 75 mg Dextrose (Glutose 40%) 18.75 gm PO PRN PRN PRN Reason: BS Below 70 if tolerate po Stop: 03/05/20 09:21 Duloxetine HCl (Cymbalta) 30 mg PO DAILY [facility]; Protocol Stop: 03/13/20 08:59 Escitalopram Oxalate (Lexapro) 10 mg PO DAILY [facility]; Protocol Stop: 03/11/20 08:59 Last Admin: 01/12/20 08:54 Dose: 10 mg Gabapentin (Neurontin) 100 mg PO TID [facility] Stop: 03/05/20 09:29 Last Admin: 01/12/20 14:00 Dose: 100 mg Glucagon (Glucagen) 1 mg IM PRN PRN PRN Reason: BS Below 70 if not tolerate po Stop: 03/05/20 09:21 Ibuprofen (Motrin) 800 mg PO BID PRN PRN Reason: Pain (Mild 1-3) Stop: 03/05/20 15:23 Last Admin: 01/05/20 16:48 Dose: 800 mg Insulin Human Lispro (Humalog Insulin Sliding Scale) 0 units SUBQ QAM@0630 [facility] ; Protocol Stop: 03/11/20 06:29 Last Admin: 01/12/20 06:08 Dose: Not Given Lisinopril (Zestril) 20 mg PO BID [facility] Stop: 03/10/20 16:59 Last Admin: 01/12/20 08:55 Dose: 20 mg Loperamide HCl (Imodium) 4 mg PO Q4HR PRN PRN Reason: Diarrhea Stop: 03/05/20 15:22 Lorazepam (Ativan) 0.5 mg PO Q4HR PRN; Protocol PRN Reason: Anxiety Stop: 02/03/20 23:18 Nitroglycerin (Transderm-Nitro) 1 patch TD Q12H [facility] Stop: 03/05/20 09:29 Last Admin: 01/12/20 11:33 Dose: 1 patch Propylene Glycol (Systane Ophth Soln) 1 drop EACH EYE Q12HR [facility] Stop: 03/05/20 20:59 Last Admin: 01/12/20 08:53 Dose: 1 drop Zolpidem Tartrate (Ambien) 5 mg PO HS PRN PRN Reason: Insomnia Stop: 03/04/20 23:18 Last Admin: 01/09/20 20:46 Dose: 5 mg General: demented HEENT: NC/AT, PERRLA Neck: Supple, No JVD, No thyromegaly Lungs: CTAB Cardiovascular: RRR, Normal S1, Normal S2 Abdomen: soft, globular, positive bowel sound Extremities: excoriation, contracture Neurological: unsteady Internal Medicine Assmt/Plan - Assessment Assessment: ASSESSMENT: Chronic obstructive pulmonary disease, hypertension, diabetes, thrombocytopenia, platelets of 112, coronary artery disease, status post stent, history of stroke with right-sided weakness, and gait imbalance. - Plan Plan: plan Continue ADA diet and insulin sliding scale. He is currently on hypoglycemic medication. Continue aspirin and Plavix. We will continue fall precaution and a wheelchair. will titrate coreg up. We will continue to follow with the patient closely. Nutritional Asmnt/Malnutr-PDOC - Dietary Evaluation Malnutrition Findings (Please click <Entered> for more info): Nutritional Asmnt/Malnutrition Start: 01/07/20 09: 16 Text: Status: Complete Freq: Protocol: Document 01/07/20 09:30 MMMITESH (Rec: 01/07/20 09:36 MMULRICARDO MATA- [email or web address]) Nutritional Asmnt/Malnutrition Patient General Information Nutritional Screening Moderate Risk Diagnosis Psychosis Pertinent Medical Hx/Surgical Hx hypertension, diabetes, depression, CVA Subjective Information Patient was admitted from [facility]. Per nursing notes, patient is depressed and withdrawn. Patient eating lunch at time of visit. Tolerating current diet with adequate intake. Current Diet Order/ Nutrition Support Mechanical soft, 60gm CCHO, ROSA MARIA Patient / S.O Not Indicated Pertinent Medications maalox, dulcolax, Humalog, imodium Pertinent Labs WNL Nutritional Hx/Data Height 1.65 m Height (Calculated Centimeters) 165.1 Current Weight (lbs) 106.141 kg Weight (Calculated Kilograms) 106.1 Weight (Calculated Grams) 983132.6 [place] Body Weight 136 % [place] Body Weight 172 Body Mass Index (BMI) 38.9 Recent Weight Change No Weight Status Obese GI Symptoms GI Symptoms None Last BM 2/7 x 1 Difficult in: None Food Allergies No Cultural/Ethnic/Alevism Belief none indicated Usual diet at home unknown Skin Integrity/Comment: Jesus Perez Current %PO Good (75-100%) Estimated Nutritional Goals BEE in Kcals: Adj wt of IBW Calories/Kcals/Kg 72.9kg Adj BW Kcals Calculated ~2909-3049 kcal/day (25-30 kcal/kg) Protein: Adj wt of IBW Protein g/k-1.2 gm/kg Protein Calculated ~70-85gm/day Fluid: ml ~4327-4672 kcal/day (1 ml/kcal ) Nutritional Problem No current Nutrition Prob Problem No nutrition diagnosis at this time Intervention/Recommendation Comments 1. Continue mechanical soft, 60 gm CCHO, ROSA MARIA diet as tolerated by patient. Expected Outcomes/Goals Expected Outcomes/Goals Oral intake >75% of meals, weight stable or trend toward IBW, nutrition related labs WNl F/U LR 01/14-
--- NOTE | 2020-01-12 18:55 | Progress Notes ---
DATE: 01/12/2020 SUBJECTIVE: The patient is resting in bed, alert, calm and cooperative. The patient complained of pain on his right side. The patient rated his pain as 9 on a 0-10 scale. The patient reported that he is getting Bishop. When asked if it is working, the patient stated no. When I asked him to rate his mood on a 0-10 scale, 0 being normal and happy and 10 being very depressed, the patient stated that he cannot be happy when he is having pain. The patient denied any hopeless, helpless feelings. The patient denied any suicidal or homicidal ideation, plan or intention. The patient appeared to be depressed with constricted affect. The staff reported that the patient's blood pressure has been elevated. The staff reported that the patient is receiving Bishop and it appears to be working. The patient did not complain when the patient received the medication. The staff reported that the patient did not participate in activities. ASSESSMENT: 1. Major depressive disorder. 2. Mood disorder, depressed due to medical condition. PLAN: We will start the patient on Cymbalta 30 mg p.o. q.a.m. for neuropathy. We will continue the patient on Lexapro for depression. Consider increasing Lexapro to 20 mg if indicated. We will monitor how the patient responds to the addition of Cymbalta 30 mg. JOB# [id number]
[2020-01-13] MEDS: Hydrocodone/APAP 10 mg/325 mg Tab PO PRN ×2 (05:49→12:33)
[2020-01-13] MEDS: INSULIN LISPRO SLIDING SCALE 100 UNITS/ML UNIT SUBQ SCH (06:28)
--- NOTE | 2020-01-13 08:18 | Progress Notes ---
DATE: 01/13/2020 SUBJECTIVE: The patient was resting in bed, calm and pleasant. The patient reported that he is doing okay, that he slept well last night. When I asked if he has any pain, the patient denied any pain at this time. However, patient indicated that he has visual problem with his right eye. The patient indicated that he already had breakfast; however breakfast tray had not been passed out to the patient yet. OBJECTIVE: The staff reported that the patient has been doing okay. He slept pretty well last night. The patient did not complain of any issue last night. Staff reported that the patient has been taking his medication without any problem. ASSESSMENT: 1. Major depressive disorder. 2. Mood disorder, depressed due to medical condition. PLAN: Since the patient appeared to be responding to current psychotropic medications, therefore we will continue current medications and we will continue to observe patient's condition and discharge when the patient is more stable. There was an order for Cymbalta 30 mg in the morning, which will start this morning, so we will see if the Cymbalta will help reducing the pain level. JOB# [id number]
[2020-01-13] MEDS: Peg-400/Propylene Ophth Soln 5 mL Bottle EACH EYE SCH ×2 (08:44→21:11)
[2020-01-13] MEDS: Nitroglycerin 0.2 mg/hr Tdm TD SCH ×2 (08:45→21:30)
--- NOTE | 2020-01-13 15:44 | Internal Medicine Prog Note ---
Internal Medicine Subjective - Subjective Patient seen and examined:: with staff, chart reviewed Patient is:: awake, verbal, interactive, in wheelchair Per staff patient has:: no adverse event, no episodes of fall, tolerating meds Internal Medicine Objective - Results Recent Labs: Laboratory Last Values POC Glucose 84 MG/DL (70 - 105) 01/13/20 06:09 - Physical Exam Vitals and I&O: Vital Signs Temp 98.6 F 01/13/20 14:00 Pulse 64 01/13/20 14:00 Resp 20 01/13/20 14:00 BP 168/96 01/13/20 14:00 Pulse Ox 98 01/13/20 14:00 Intake & Output 01/12/20 01/13/20 01/13/20 18:59 06:59 18:59 Intake Total 120 120 Balance 120 120 Intake: Oral 120 120 Other: # Voids 2 2 # Bowel Movements 0 0 Active Medications: Current Medications Acetaminophen (Tylenol) 650 mg PO Q4HR PRN PRN Reason: Temperature Above 100 Stop: 03/04/20 23:18 Last Admin: 01/08/20 10:33 Dose: 650 mg Acetaminophen/Hydrocodone Bitart ([place] 10 Mg/325 Mg) 1 tab PO Q4H PRN PRN Reason: Severe Pain (Scale 7-10) Stop: 03/05/20 09:16 Last Admin: 01/13/20 12:33 Dose: 1 tab Acetaminophen/Hydrocodone Bitart ([place] 5mg/325mg) 1 tab PO Q6H PRN PRN Reason: moderate pain (scale 4-6) Stop: 03/05/20 09:16 Last Admin: 01/06/20 21:04 Dose: 1 tab Al Hydrox/Mg Hydrox/Simethicone (Maalox) 30 ml PO Q4HR PRN PRN Reason: GI DISTRESS Stop: 03/04/20 23:18 Aspirin (Ecotrin) 81 mg PO DAILY [facility] Stop: 03/06/20 08:59 Last Admin: 01/13/20 08:44 Dose: 81 mg Bisacodyl (Dulcolax 10 Mg Supp) 10 mg RC Q12HR PRN PRN Reason: Constipation Stop: 03/05/20 09:16 Carvedilol (Coreg) 3.125 mg PO BID [facility] Stop: 03/10/20 18:14 Last Admin: 01/13/20 08:44 Dose: 3.125 mg Clopidogrel Bisulfate (Plavix) 75 mg PO DAILY [facility] Stop: 03/05/20 09:29 Last Admin: 01/13/20 08:44 Dose: 75 mg Dextrose (Glutose 40%) 18.75 gm PO PRN PRN PRN Reason: BS Below 70 if tolerate po Stop: 03/05/20 09:21 Duloxetine HCl (Cymbalta) 30 mg PO DAILY [facility]; Protocol Stop: 03/13/20 08:59 Last Admin: 01/13/20 08:44 Dose: 30 mg Escitalopram Oxalate (Lexapro) 10 mg PO DAILY [facility]; Protocol Stop: 03/11/20 08:59 Last Admin: 01/13/20 08:44 Dose: 10 mg Gabapentin (Neurontin) 100 mg PO TID [facility] Stop: 03/05/20 09:29 Last Admin: 01/13/20 15:25 Dose: 100 mg Glucagon (Glucagen) 1 mg IM PRN PRN PRN Reason: BS Below 70 if not tolerate po Stop: 03/05/20 09:21 Ibuprofen (Motrin) 800 mg PO BID PRN PRN Reason: Pain (Mild 1-3) Stop: 03/05/20 15:23 Last Admin: 01/05/20 16:48 Dose: 800 mg Insulin Human Lispro (Humalog Insulin Sliding Scale) 0 units SUBQ QAM@0630 [facility] ; Protocol Stop: 03/11/20 06:29 Last Admin: 01/13/20 06:28 Dose: Not Given Lisinopril (Zestril) 20 mg PO BID [facility] Stop: 03/10/20 16:59 Last Admin: 01/13/20 08:44 Dose: 20 mg Loperamide HCl (Imodium) 4 mg PO Q4HR PRN PRN Reason: Diarrhea Stop: 03/05/20 15:22 Lorazepam (Ativan) 0.5 mg PO Q4HR PRN; Protocol PRN Reason: Anxiety Stop: 02/03/20 23:18 Nitroglycerin (Transderm-Nitro) 1 patch TD Q12H [facility] Stop: 03/05/20 09:29 Last Admin: 01/13/20 08:45 Dose: 1 patch Propylene Glycol (Systane Ophth Soln) 1 drop EACH EYE Q12HR [facility] Stop: 03/05/20 20:59 Last Admin: 01/13/20 08:44 Dose: 1 drop Zolpidem Tartrate (Ambien) 5 mg PO HS PRN PRN Reason: Insomnia Stop: 03/04/20 23:18 Last Admin: 01/09/20 20:46 Dose: 5 mg General: demented HEENT: NC/AT, PERRLA Neck: Supple, No JVD, No thyromegaly Lungs: CTAB Cardiovascular: RRR, Normal S1, Normal S2 Abdomen: soft, globular, positive bowel sound Extremities: excoriation, contracture Neurological: unsteady Internal Medicine Assmt/Plan - Assessment Assessment: ASSESSMENT: Chronic obstructive pulmonary disease, hypertension, diabetes, thrombocytopenia, platelets of 112, coronary artery disease, status post stent, history of stroke with right-sided weakness, and gait imbalance. - Plan Plan: plan Continue ADA diet and insulin sliding scale. He is currently on hypoglycemic medication. Continue aspirin and Plavix. We will continue fall precaution and a wheelchair. will titrate coreg up. We will continue to follow with the patient closely. Nutritional Asmnt/Malnutr-PDOC - Dietary Evaluation Malnutrition Findings (Please click <Entered> for more info): Nutritional Asmnt/Malnutrition Start: 01/07/20 09: 16 Text: Status: Complete Freq: Protocol: Document 01/07/20 09:30 MARYELLEN (Rec: 01/07/20 09:36 MMULRICARDO MATA- [email or web address]) Nutritional Asmnt/Malnutrition Patient General Information Nutritional Screening Moderate Risk Diagnosis Psychosis Pertinent Medical Hx/Surgical Hx hypertension, diabetes, depression, CVA Subjective Information Patient was admitted from [facility]. Per nursing notes, patient is depressed and withdrawn. Patient eating lunch at time of visit. Tolerating current diet with adequate intake. Current Diet Order/ Nutrition Support Mechanical soft, 60gm CCHO, ROSA MARIA Patient / S.O Not Indicated Pertinent Medications maalox, dulcolax, Humalog, imodium Pertinent Labs WNL Nutritional Hx/Data Height 1.65 m Height (Calculated Centimeters) 165.1 Current Weight (lbs) 106.141 kg Weight (Calculated Kilograms) 106.1 Weight (Calculated Grams) 843845.6 [place] Body Weight 136 % [place] Body Weight 172 Body Mass Index (BMI) 38.9 Recent Weight Change No Weight Status Obese GI Symptoms GI Symptoms None Last BM 2/ x 1 Difficult in: None Food Allergies No Cultural/Ethnic/Religion Belief none indicated Usual diet at home unknown Skin Integrity/Comment: Jesus 19 Current %PO Good (75-100%) Estimated Nutritional Goals BEE in Kcals: Adj wt of IBW Calories/Kcals/Kg 72.9kg Adj BW Kcals Calculated ~9568-5408 kcal/day (25-30 kcal/kg) Protein: Adj wt of IBW Protein g/k-1.2 gm/kg Protein Calculated ~70-85gm/day Fluid: ml ~1130-5244 kcal/day (1 ml/kcal ) Nutritional Problem No current Nutrition Prob Problem No nutrition diagnosis at this time Intervention/Recommendation Comments 1. Continue mechanical soft, 60 gm CCHO, ROSA MARIA diet as tolerated by patient. Expected Outcomes/Goals Expected Outcomes/Goals Oral intake >75% of meals, weight stable or trend toward IBW, nutrition related labs WNl F/U LR 01/14-18
--- NOTE | 2020-01-13 21:18 | Progress Notes ---
DATE: 01/13/2020 PSYCHOLOGY PROGRESS NOTE SUBJECTIVE: The patient is seen up in his wheelchair by the nurse's station. The patient states that he wants to discharge today. The patient was informed that Dr. Benavides and/or Dr. Ward would be seeing him this afternoon or possibly tomorrow morning and discuss discharge with him. The patient continued to perseverate on discharge. The patient states that he is having a problem with his right eye and that his right arm is still painful. The patient seems to be restless, confused and somewhat irritable this visit. OBJECTIVE: Mood is anxious. Affect is broad. Thought process includes perseveration on discharge as well as pain in his right arm and a problem with his right eye. The patient is overly focused on his medical problems and focused almost singularly on his medical condition. The patient has poor insight into his mental illness. The patient denied any hallucinations or delusions; however, there is some delusional content. The patient has been compliant with his medication and is redirectable according to the staff. ASSESSMENT: The patient's depression and anxiety persist. PLAN: We provided remotivation and positive reinforcement for the patient to stay compliant with his care and treatment. We provided reality testing, reality orientation and reality integration. The patient has multiple physical complaints and was requesting to see a medical doctor and nursing staff was informed. We provided coping strategies and encouraged the patient to continue to verbalize his concerns. We will follow up in 2-3 days if the patient is still admitted on the unit and to continue to assess the capacity for the patient to benefit from psychotherapeutic treatment. JOB# [id number] GEOVANI
[2020-01-14] MEDS: Hydrocodone/APAP 5mg/325mg Tab PO PRN ×2 (06:14→13:08)
[2020-01-14] MEDS: INSULIN LISPRO SLIDING SCALE 100 UNITS/ML UNIT SUBQ SCH (06:38)
[2020-01-14] MEDS: Peg-400/Propylene Ophth Soln 5 mL Bottle EACH EYE SCH ×2 (08:25→21:36)
[2020-01-14] MEDS: Nitroglycerin 0.2 mg/hr Tdm TD SCH ×2 (08:34→21:39)
--- NOTE | 2020-01-14 13:55 | Internal Medicine Prog Note ---
Internal Medicine Subjective - Subjective Patient seen and examined:: with staff, chart reviewed Patient is:: awake, verbal, interactive, in wheelchair Per staff patient has:: no adverse event, no episodes of fall, tolerating meds Internal Medicine Objective - Results Recent Labs: Laboratory Last Values POC Glucose 82 MG/DL (70 - 105) 01/14/20 06:00 - Physical Exam Vitals and I&O: Vital Signs Temp 98.3 F 01/14/20 06:24 Pulse 54 01/14/20 08:34 Resp 18 01/14/20 07:51 BP 184/103 01/14/20 08:34 Pulse Ox 95 01/14/20 06:24 Intake & Output 01/13/20 01/14/20 01/14/20 18:59 06:59 18:59 Intake Total 120 1450 Balance 120 1450 Intake: Oral 120 1450 Other: # Voids 2 250 # Bowel Movements 0 1 Active Medications: Current Medications Acetaminophen (Tylenol) 650 mg PO Q4HR PRN PRN Reason: Temperature Above 100 Stop: 03/04/20 23:18 Last Admin: 01/08/20 10:33 Dose: 650 mg Acetaminophen/Hydrocodone Bitart ([place] 10 Mg/325 Mg) 1 tab PO Q4H PRN PRN Reason: Severe Pain (Scale 7-10) Stop: 03/05/20 09:16 Last Admin: 01/13/20 12:33 Dose: 1 tab Acetaminophen/Hydrocodone Bitart ([place] 5mg/325mg) 1 tab PO Q6H PRN PRN Reason: moderate pain (scale 4-6) Stop: 03/05/20 09:16 Last Admin: 01/14/20 13:08 Dose: 1 tab Al Hydrox/Mg Hydrox/Simethicone (Maalox) 30 ml PO Q4HR PRN PRN Reason: GI DISTRESS Stop: 03/04/20 23:18 Aspirin (Ecotrin) 81 mg PO DAILY [facility] Stop: 03/06/20 08:59 Last Admin: 01/14/20 08:26 Dose: 81 mg Bisacodyl (Dulcolax 10 Mg Supp) 10 mg RC Q12HR PRN PRN Reason: Constipation Stop: 03/05/20 09:16 Carvedilol (Coreg) 3.125 mg PO BID [facility] Stop: 03/10/20 18:14 Last Admin: 01/14/20 08:26 Dose: 3.125 mg Clopidogrel Bisulfate (Plavix) 75 mg PO DAILY [facility] Stop: 03/05/20 09:29 Last Admin: 01/14/20 08:26 Dose: 75 mg Dextrose (Glutose 40%) 18.75 gm PO PRN PRN PRN Reason: BS Below 70 if tolerate po Stop: 03/05/20 09:21 Duloxetine HCl (Cymbalta) 30 mg PO DAILY [facility]; Protocol Stop: 03/13/20 08:59 Last Admin: 01/14/20 08:26 Dose: 30 mg Escitalopram Oxalate (Lexapro) 10 mg PO DAILY [facility]; Protocol Stop: 03/11/20 08:59 Last Admin: 01/14/20 08:26 Dose: 10 mg Gabapentin (Neurontin) 100 mg PO TID [facility] Stop: 03/05/20 09:29 Last Admin: 01/14/20 13:08 Dose: 100 mg Glucagon (Glucagen) 1 mg IM PRN PRN PRN Reason: BS Below 70 if not tolerate po Stop: 03/05/20 09:21 Ibuprofen (Motrin) 800 mg PO BID PRN PRN Reason: Pain (Mild 1-3) Stop: 03/05/20 15:23 Last Admin: 01/05/20 16:48 Dose: 800 mg Insulin Human Lispro (Humalog Insulin Sliding Scale) 0 units SUBQ QAM@0630 [facility] ; Protocol Stop: 03/11/20 06:29 Last Admin: 01/14/20 06:38 Dose: Not Given Lisinopril (Zestril) 20 mg PO BID [facility] Stop: 03/10/20 16:59 Last Admin: 01/14/20 08:25 Dose: 20 mg Loperamide HCl (Imodium) 4 mg PO Q4HR PRN PRN Reason: Diarrhea Stop: 03/05/20 15:22 Lorazepam (Ativan) 0.5 mg PO Q4HR PRN; Protocol PRN Reason: Anxiety Stop: 02/03/20 23:18 Nitroglycerin (Transderm-Nitro) 1 patch TD Q12H [facility] Stop: 03/05/20 09:29 Last Admin: 01/14/20 08:34 Dose: 1 patch Propylene Glycol (Systane Ophth Soln) 1 drop EACH EYE Q12HR [facility] Stop: 03/05/20 20:59 Last Admin: 01/14/20 08:25 Dose: 1 drop Zolpidem Tartrate (Ambien) 5 mg PO HS PRN PRN Reason: Insomnia Stop: 03/04/20 23:18 Last Admin: 01/13/20 21:11 Dose: 5 mg General: demented HEENT: NC/AT, PERRLA Neck: Supple, No JVD, No thyromegaly Lungs: CTAB Cardiovascular: RRR, Normal S1, Normal S2 Abdomen: soft, globular, positive bowel sound Extremities: excoriation, contracture Neurological: unsteady Internal Medicine Assmt/Plan - Assessment Assessment: ASSESSMENT: Chronic obstructive pulmonary disease, hypertension, diabetes, thrombocytopenia, platelets of 112, coronary artery disease, status post stent, history of stroke with right-sided weakness, and gait imbalance. - Plan Plan: plan Continue ADA diet and insulin sliding scale. He is currently on hypoglycemic medication. Continue aspirin and Plavix. We will continue fall precaution and a wheelchair. will titrate coreg up. We will continue to follow with the patient closely. Nutritional Asmnt/Malnutr-PDOC - Dietary Evaluation Malnutrition Findings (Please click <Entered> for more info): Nutritional Asmnt/Malnutrition Start: 01/07/20 09: 16 Text: Status: Complete Freq: Protocol: Document 01/07/20 09:30 MMULRICARDO (Rec: 01/07/20 09:36 MMULRICARDO MATA- [email or web address]) Nutritional Asmnt/Malnutrition Patient General Information Nutritional Screening Moderate Risk Diagnosis Psychosis Pertinent Medical Hx/Surgical Hx hypertension, diabetes, depression, CVA Subjective Information Patient was admitted from [facility]. Per nursing notes, patient is depressed and withdrawn. Patient eating lunch at time of visit. Tolerating current diet with adequate intake. Current Diet Order/ Nutrition Support Mechanical soft, 60gm CCHO, ROSA MARIA Patient / S.O Not Indicated Pertinent Medications maalox, dulcolax, Humalog, imodium Pertinent Labs WNL Nutritional Hx/Data Height 1.65 m Height (Calculated Centimeters) 165.1 Current Weight (lbs) 106.141 kg Weight (Calculated Kilograms) 106.1 Weight (Calculated Grams) 437125.6 [place] Body Weight 136 % [place] Body Weight 172 Body Mass Index (BMI) 38.9 Recent Weight Change No Weight Status Obese GI Symptoms GI Symptoms None Last BM 2/7 x 1 Difficult in: None Food Allergies No Cultural/Ethnic/Moravian Belief none indicated Usual diet at home unknown Skin Integrity/Comment: Jesus Perez Current %PO Good (75-100%) Estimated Nutritional Goals BEE in Kcals: Adj wt of IBW Calories/Kcals/Kg 72.9kg Adj BW Kcals Calculated ~2306-4020 kcal/day (25-30 kcal/kg) Protein: Adj wt of IBW Protein g/k-1.2 gm/kg Protein Calculated ~70-85gm/day Fluid: ml ~5030-2950 kcal/day (1 ml/kcal ) Nutritional Problem No current Nutrition Prob Problem No nutrition diagnosis at this time Intervention/Recommendation Comments 1. Continue mechanical soft, 60 gm CCHO, ROSA MARIA diet as tolerated by patient. Expected Outcomes/Goals Expected Outcomes/Goals Oral intake >75% of meals, weight stable or trend toward IBW, nutrition related labs WNl F/U LR 01/14-18
--- NOTE | 2020-01-14 15:14 | Progress Notes ---
DATE: SUBJECTIVE: The patient was resting in bed, alert and pleasant. The patient reported that he is doing okay. The patient reported that he still has pain on his right side from the stroke. The patient reported that the pain is better, not as severe. The patient reported that he has been eating and sleeping okay. The patient reported that he would be up little later. OBJECTIVE: The patient appeared to be less depressed. The patient did not complain of any pain this morning. The staff reported that the patient has been better. The patient has been up and about. He has unsteady gait, so the staff would walk with him. ASSESSMENT: 1. Major depressive disorder. 2. Mood disorder, depressed, due to medical condition. PLAN: We will continue current medications. The patient had Cymbalta added in the morning that might help with the depression as well as pain. JOB# [id number]
[2020-01-15] MEDS: Hydrocodone/APAP 5mg/325mg Tab PO PRN ×2 (06:10→21:57)
[2020-01-15] MEDS: INSULIN LISPRO SLIDING SCALE 100 UNITS/ML UNIT SUBQ SCH (06:29)
[2020-01-15] MEDS: Nitroglycerin 0.2 mg/hr Tdm TD SCH ×2 (09:27→21:58)
[2020-01-15] MEDS: Peg-400/Propylene Ophth Soln 5 mL Bottle EACH EYE SCH ×2 (09:30→20:44)
--- NOTE | 2020-01-15 13:40 | Progress Notes ---
DATE: 01/15/2020 SUBJECTIVE: The patient was resting in bed, alert, calm and cooperative. His speech continued to be soft and low in volume, sometimes have to ask the patient to repeat himself. The patient complained of pain in his right side. The patient stated that he has not received his medication. The patient stated that he did eat and slept okay. The patient indicated that he had been up in the daytime. OBJECTIVE: The patient continued to be cooperative and pleasant. The patient reported that he is feeling better. The patient did not make any statement about wanting to go home. The staff reported that the patient continued to be eating and sleeping okay and received pain medication as needed. ASSESSMENT: 1. Major depressive disorder. 2. Mood disorder, depressed due to medical condition. PLAN: We will continue current medications. We will monitor the patient's response to the Cymbalta for both pain and depressed mood. Consider adjusting Cymbalta or Lexapro as needed to help with his depression, but for now, we will continue current dose. [facility]# [id number]
--- NOTE | 2020-01-15 13:47 | Internal Medicine Prog Note ---
Internal Medicine Subjective - Subjective Patient seen and examined:: with staff, chart reviewed Patient is:: awake, verbal, interactive, in wheelchair Per staff patient has:: no adverse event, no episodes of fall, tolerating meds Internal Medicine Objective - Results Recent Labs: Laboratory Last Values POC Glucose 82 MG/DL (70 - 105) 01/14/20 06:00 - Physical Exam Vitals and I&O: Vital Signs Temp 98.7 F 01/15/20 05:57 Pulse 60 01/15/20 09:30 Resp 20 01/15/20 05:57 BP 167/95 01/15/20 09:30 Pulse Ox 96 01/15/20 05:57 Intake & Output 01/14/20 01/15/20 01/15/20 18:59 06:59 18:59 Intake Total 360 Balance 360 Intake: Oral 360 Other: # Voids 2 # Bowel Movements 0 Active Medications: Current Medications Acetaminophen (Tylenol) 650 mg PO Q4HR PRN PRN Reason: Temperature Above 100 Stop: 03/04/20 23:18 Last Admin: 01/08/20 10:33 Dose: 650 mg Acetaminophen/Hydrocodone Bitart ([place] 10 Mg/325 Mg) 1 tab PO Q4H PRN PRN Reason: Severe Pain (Scale 7-10) Stop: 03/05/20 09:16 Last Admin: 01/13/20 12:33 Dose: 1 tab Acetaminophen/Hydrocodone Bitart ([place] 5mg/325mg) 1 tab PO Q6H PRN PRN Reason: moderate pain (scale 4-6) Stop: 03/05/20 09:16 Last Admin: 01/15/20 06:10 Dose: 1 tab Al Hydrox/Mg Hydrox/Simethicone (Maalox) 30 ml PO Q4HR PRN PRN Reason: GI DISTRESS Stop: 03/04/20 23:18 Aspirin (Ecotrin) 81 mg PO DAILY [facility] Stop: 03/06/20 08:59 Last Admin: 01/15/20 09:29 Dose: 81 mg Bisacodyl (Dulcolax 10 Mg Supp) 10 mg RC Q12HR PRN PRN Reason: Constipation Stop: 03/05/20 09:16 Carvedilol (Coreg) 3.125 mg PO BID [facility] Stop: 03/10/20 18:14 Last Admin: 01/15/20 09:29 Dose: 3.125 mg Clopidogrel Bisulfate (Plavix) 75 mg PO DAILY [facility] Stop: 03/05/20 09:29 Last Admin: 01/15/20 09:29 Dose: 75 mg Dextrose (Glutose 40%) 18.75 gm PO PRN PRN PRN Reason: BS Below 70 if tolerate po Stop: 03/05/20 09:21 Duloxetine HCl (Cymbalta) 30 mg PO DAILY [facility]; Protocol Stop: 03/13/20 08:59 Last Admin: 01/15/20 09:29 Dose: 30 mg Escitalopram Oxalate (Lexapro) 10 mg PO DAILY [facility]; Protocol Stop: 03/11/20 08:59 Last Admin: 01/15/20 09:30 Dose: 10 mg Gabapentin (Neurontin) 100 mg PO TID [facility] Stop: 03/05/20 09:29 Last Admin: 01/15/20 09:30 Dose: 100 mg Glucagon (Glucagen) 1 mg IM PRN PRN PRN Reason: BS Below 70 if not tolerate po Stop: 03/05/20 09:21 Ibuprofen (Motrin) 800 mg PO BID PRN PRN Reason: Pain (Mild 1-3) Stop: 03/05/20 15:23 Last Admin: 01/05/20 16:48 Dose: 800 mg Insulin Human Lispro (Humalog Insulin Sliding Scale) 0 units SUBQ QAM@0630 [facility] ; Protocol Stop: 03/11/20 06:29 Last Admin: 01/15/20 06:29 Dose: Not Given Lisinopril (Zestril) 20 mg PO BID [facility] Stop: 03/10/20 16:59 Last Admin: 01/15/20 09:30 Dose: 20 mg Loperamide HCl (Imodium) 4 mg PO Q4HR PRN PRN Reason: Diarrhea Stop: 03/05/20 15:22 Lorazepam (Ativan) 0.5 mg PO Q4HR PRN; Protocol PRN Reason: Anxiety Stop: 02/03/20 23:18 Nitroglycerin (Transderm-Nitro) 1 patch TD Q12H [facility] Stop: 03/05/20 09:29 Last Admin: 01/15/20 09:27 Dose: 1 patch Propylene Glycol (Systane Ophth Soln) 1 drop EACH EYE Q12HR [facility] Stop: 03/05/20 20:59 Last Admin: 02/16/20 09:30 Dose: 1 drop Zolpidem Tartrate (Ambien) 5 mg PO HS PRN PRN Reason: Insomnia Stop: 03/04/20 23:18 Last Admin: 01/14/20 21:40 Dose: 5 mg General: demented HEENT: NC/AT, PERRLA Neck: Supple, No JVD, No thyromegaly Lungs: CTAB Cardiovascular: RRR, Normal S1, Normal S2 Abdomen: soft, globular, positive bowel sound Extremities: excoriation, contracture Neurological: unsteady Internal Medicine Assmt/Plan - Assessment Assessment: ASSESSMENT: Chronic obstructive pulmonary disease, hypertension, diabetes, thrombocytopenia, platelets of 112, coronary artery disease, status post stent, history of stroke with right-sided weakness, and gait imbalance. - Plan Plan: plan Continue ADA diet and insulin sliding scale. He is currently on hypoglycemic medication. Continue aspirin and Plavix. We will continue fall precaution and a wheelchair. will titrate coreg up. We will continue to follow with the patient closely. Nutritional Asmnt/Malnutr-PDOC - Dietary Evaluation Malnutrition Findings (Please click <Entered> for more info): Nutritional Asmnt/Malnutrition Start: 01/07/20 09: 16 Text: Status: Complete Freq: Protocol: Document 01/07/20 09:30 MARYELLEN (Rec: 01/07/20 09:36 MMMITESH MATA- FNS1) Nutritional Asmnt/Malnutrition Patient General Information Nutritional Screening Moderate Risk Diagnosis Psychosis Pertinent Medical Hx/Surgical Hx hypertension, diabetes, depression, CVA Subjective Information Patient was admitted from [facility]. Per nursing notes, patient is depressed and withdrawn. Patient eating lunch at time of visit. Tolerating current diet with adequate intake. Current Diet Order/ Nutrition Support Mechanical soft, 60gm CCHO, ROSA MARIA Patient / S.O Not Indicated Pertinent Medications maalox, dulcolax, Humalog, imodium Pertinent Labs WNL Nutritional Hx/Data Height 1.65 m Height (Calculated Centimeters) 165.1 Current Weight (lbs) 106.141 kg Weight (Calculated Kilograms) 106.1 Weight (Calculated Grams) 253468.6 [place] Body Weight 136 % [place] Body Weight 172 Body Mass Index (BMI) 38.9 Recent Weight Change No Weight Status Obese GI Symptoms GI Symptoms None Last BM 2/7 x 1 Difficult in: None Food Allergies No Cultural/Ethnic/Congregational Belief none indicated Usual diet at home unknown Skin Integrity/Comment: Jesus Perez Current %PO Good (75-100%) Estimated Nutritional Goals BEE in Kcals: Adj wt of IBW Calories/Kcals/Kg 72.9kg Adj BW Kcals Calculated ~4740-5587 kcal/day (25-30 kcal/kg) Protein: Adj wt of IBW Protein g/k-1.2 gm/kg Protein Calculated ~70-85gm/day Fluid: ml ~1354-5493 kcal/day (1 ml/kcal ) Nutritional Problem No current Nutrition Prob Problem No nutrition diagnosis at this time Intervention/Recommendation Comments 1. Continue mechanical soft, 60 gm CCHO, ROSA MARIA diet as tolerated by patient. Expected Outcomes/Goals Expected Outcomes/Goals Oral intake >75% of meals, weight stable or trend toward IBW, nutrition related labs WNl F/U LR 01/14-
[2020-01-15] MEDS: Hydrocodone/APAP 10 mg/325 mg Tab PO PRN (15:05)
[2020-01-16] MEDS: INSULIN LISPRO SLIDING SCALE 100 UNITS/ML UNIT SUBQ SCH (06:36)
[2020-01-16] MEDS: Peg-400/Propylene Ophth Soln 5 mL Bottle EACH EYE SCH (08:20)
[2020-01-16] MEDS: Nitroglycerin 0.2 mg/hr Tdm TD SCH (09:00)
--- NOTE | 2020-01-16 13:48 | Internal Medicine Prog Note ---
Internal Medicine Subjective - Subjective Patient seen and examined:: with staff, chart reviewed Patient is:: awake, verbal, interactive, in wheelchair Per staff patient has:: no adverse event, no episodes of fall, tolerating meds Internal Medicine Objective - Results Recent Labs: Laboratory Last Values POC Glucose 82 MG/DL (70 - 105) 01/16/20 05:58 - Physical Exam Vitals and I&O: Vital Signs Temp 98.4 F 01/16/20 06:17 Pulse 86 01/16/20 09:00 Resp 20 01/16/20 07:45 BP 135/76 01/16/20 09:00 Pulse Ox 95 01/16/20 06:17 Intake & Output 01/15/20 01/16/20 01/16/20 18:59 06:59 18:59 Intake Total 950 420 Balance 950 420 Intake: Oral 950 420 Other: # Voids 4 2 # Bowel Movements 0 Active Medications: Current Medications Acetaminophen (Tylenol) 650 mg PO Q4HR PRN PRN Reason: Temperature Above 100 Stop: 03/04/20 23:18 Last Admin: 01/08/20 10:33 Dose: 650 mg Acetaminophen/Hydrocodone Bitart ([place] 10 Mg/325 Mg) 1 tab PO Q4H PRN PRN Reason: Severe Pain (Scale 7-10) Stop: 03/05/20 09:16 Last Admin: 01/15/20 15:05 Dose: 1 tab Acetaminophen/Hydrocodone Bitart ([place] 5mg/325mg) 1 tab PO Q6H PRN PRN Reason: moderate pain (scale 4-6) Stop: 03/05/20 09:16 Last Admin: 01/15/20 21:57 Dose: 1 tab Al Hydrox/Mg Hydrox/Simethicone (Maalox) 30 ml PO Q4HR PRN PRN Reason: GI DISTRESS Stop: 03/04/20 23:18 Aspirin (Ecotrin) 81 mg PO DAILY [facility] Stop: 03/06/20 08:59 Last Admin: 01/16/20 08:19 Dose: 81 mg Bisacodyl (Dulcolax 10 Mg Supp) 10 mg RC Q12HR PRN PRN Reason: Constipation Stop: 03/05/20 09:16 Carvedilol (Coreg) 3.125 mg PO BID [facility] Stop: 03/10/20 18:14 Last Admin: 01/16/20 08:19 Dose: 3.125 mg Clopidogrel Bisulfate (Plavix) 75 mg PO DAILY [facility] Stop: 03/05/20 09:29 Last Admin: 01/16/20 08:19 Dose: 75 mg Dextrose (Glutose 40%) 18.75 gm PO PRN PRN PRN Reason: BS Below 70 if tolerate po Stop: 03/05/20 09:21 Duloxetine HCl (Cymbalta) 30 mg PO DAILY [facility]; Protocol Stop: 03/13/20 08:59 Last Admin: 01/16/20 08:19 Dose: 30 mg Escitalopram Oxalate (Lexapro) 10 mg PO DAILY [facility]; Protocol Stop: 03/11/20 08:59 Last Admin: 01/16/20 08:19 Dose: 10 mg Gabapentin (Neurontin) 100 mg PO TID [facility] Stop: 03/05/20 09:29 Last Admin: 01/16/20 08:19 Dose: 100 mg Glucagon (Glucagen) 1 mg IM PRN PRN PRN Reason: BS Below 70 if not tolerate po Stop: 03/05/20 09:21 Ibuprofen (Motrin) 800 mg PO BID PRN PRN Reason: Pain (Mild 1-3) Stop: 03/05/20 15:23 Last Admin: 01/05/20 16:48 Dose: 800 mg Insulin Human Lispro (Humalog Insulin Sliding Scale) 0 units SUBQ QAM@0630 [facility] ; Protocol Stop: 03/11/20 06:29 Last Admin: 01/16/20 06:36 Dose: Not Given Lisinopril (Zestril) 20 mg PO BID [facility] Stop: 03/10/20 16:59 Last Admin: 01/16/20 08:19 Dose: 20 mg Loperamide HCl (Imodium) 4 mg PO Q4HR PRN PRN Reason: Diarrhea Stop: 03/05/20 15:22 Lorazepam (Ativan) 0.5 mg PO Q4HR PRN; Protocol PRN Reason: Anxiety Stop: 02/03/20 23:18 Nitroglycerin (Transderm-Nitro) 1 patch TD Q12H [facility] Stop: 03/05/20 09:29 Last Admin: 01/16/20 09:00 Dose: 1 patch Propylene Glycol (Systane Ophth Soln) 1 drop EACH EYE Q12HR [facility] Stop: 03/05/20 20:59 Last Admin: 01/16/20 08:20 Dose: 1 drop Zolpidem Tartrate (Ambien) 5 mg PO HS PRN PRN Reason: Insomnia Stop: 03/04/20 23:18 Last Admin: 01/15/20 20:45 Dose: 5 mg General: demented HEENT: NC/AT, PERRLA Neck: Supple, No JVD, No thyromegaly Lungs: CTAB Cardiovascular: RRR, Normal S1, Normal S2 Abdomen: soft, globular, positive bowel sound Extremities: excoriation, contracture Neurological: unsteady Internal Medicine Assmt/Plan - Assessment Assessment: ASSESSMENT: Chronic obstructive pulmonary disease, hypertension, diabetes, thrombocytopenia, platelets of 112, coronary artery disease, status post stent, history of stroke with right-sided weakness, and gait imbalance. - Plan Plan: plan Continue ADA diet and insulin sliding scale. He is currently on hypoglycemic medication. Continue aspirin and Plavix. We will continue fall precaution and a wheelchair. will titrate coreg up. We will continue to follow with the patient closely. Nutritional Asmnt/Malnutr-PDOC - Dietary Evaluation Malnutrition Findings (Please click <Entered> for more info): Nutritional Asmnt/Malnutrition Start: 01/07/20 09: 16 Text: Status: Complete Freq: Protocol: Document 01/07/20 09:30 MARYELLEN (Rec: 01/07/20 09:36 MMMITESH MATA- FNS1) Nutritional Asmnt/Malnutrition Patient General Information Nutritional Screening Moderate Risk Diagnosis Psychosis Pertinent Medical Hx/Surgical Hx hypertension, diabetes, depression, CVA Subjective Information Patient was admitted from [facility]. Per nursing notes, patient is depressed and withdrawn. Patient eating lunch at time of visit. Tolerating current diet with adequate intake. Current Diet Order/ Nutrition Support Mechanical soft, 60gm CCHO, ROSA MARIA Patient / S.O Not Indicated Pertinent Medications maalox, dulcolax, Humalog, imodium Pertinent Labs WNL Nutritional Hx/Data Height 1.65 m Height (Calculated Centimeters) 165.1 Current Weight (lbs) 106.141 kg Weight (Calculated Kilograms) 106.1 Weight (Calculated Grams) 642507.6 [place] Body Weight 136 % [place] Body Weight 172 Body Mass Index (BMI) 38.9 Recent Weight Change No Weight Status Obese GI Symptoms GI Symptoms None Last BM 2/7 x 1 Difficult in: None Food Allergies No Cultural/Ethnic/Presybeterian Belief none indicated Usual diet at home unknown Skin Integrity/Comment: Jesus 19 Current %PO Good (75-100%) Estimated Nutritional Goals BEE in Kcals: Adj wt of IBW Calories/Kcals/Kg 72.9kg Adj BW Kcals Calculated ~8874-9139 kcal/day (25-30 kcal/kg) Protein: Adj wt of IBW Protein g/k-1.2 gm/kg Protein Calculated ~70-85gm/day Fluid: ml ~9775-6511 kcal/day (1 ml/kcal ) Nutritional Problem No current Nutrition Prob Problem No nutrition diagnosis at this time Intervention/Recommendation Comments 1. Continue mechanical soft, 60 gm CCHO, ROSA MARIA diet as tolerated by patient. Expected Outcomes/Goals Expected Outcomes/Goals Oral intake >75% of meals, weight stable or trend toward IBW, nutrition related labs WNl F/U LR 01/14-18
[2020-01-16] MEDS: Hydrocodone/APAP 10 mg/325 mg Tab PO PRN (15:33)
[2020-01-16] MEDS: Hydrocodone/APAP 5mg/325mg Tab PO PRN (19:29)
--- NOTE | 2020-01-16 20:04 | Progress Notes ---
DATE: 01/16/2020 PSYCHIATRIC PROGRESS NOTE SUBJECTIVE: Staff was spoken to. The patient is interviewed. Mood is noted to be anxious. The patient's insight and judgment are noted to be improving. Impulse control is noted to be fair. The patient is not presenting with any threats to harm self or others. The patient is willing to comply with the treatment on an outpatient basis. No side effects to the medications are noted. ASSESSMENT: The patient is stabilizing. PLAN: To discharge the patient today for followup on outpatient basis. JOB# [id number]
--- NOTE | 2020-01-16 21:31 | Progress Notes ---
DATE: 01/16/2020 PSYCHOLOGY PROGRESS NOTE SUBJECTIVE: The patient is seen and interviewed. Case is discussed with staff. The patient is resting in bed. The patient seems less agitated this visit but confused. The patient continues to complain of pain in his right arm and is repeating somatic concerns when asked clinical questions. OBJECTIVE: Mood is improving. Affect is mood congruent. Thought process includes perseveration on discharge as well as somatic complaints. The patient denied any hallucinations or delusions. The patient's behavior has been more redirectable and has been compliant with his medications. Sleep and appetite are okay. The patient is receiving pain medication. ASSESSMENT: The patient's mood is stabilizing and is less depressed. PLAN: The patient is continued on his medications. We provided supportive psychotherapy which included coping strategies for phase of life issues. We introduced a simple skill for pain control measures that is somatic in nature to reduce the patient's pain. We provided coping strategies for phase of life issues. We provided assistance for the patient to adjust to his current set of circumstances and to be less focused on medical concerns and physical complaints to reduce his somatization. We will follow up in 2-3 days if the patient remains admitted on the unit. JOB# [id number] [email or web address]
== END 2020-01-16 20:15 | DRG 885 ==
LOC: GERO 22:14
PROVIDERS: ADMIT Psychiatry & Neurology Psychiatry; ATTEND Psychiatry & Neurology Psychiatry
DX: F33.2 Major depressive disorder, recurrent severe without psychotic features (principal); I69.351 Hemiplegia and hemiparesis following cerebral infarction affecting right dominant side; J44.9 Chronic obstructive pulmonary disease, unspecified; E11.9 Type 2 diabetes mellitus without complications; I10 Essential (primary) hypertension; D69.6 Thrombocytopenia, unspecified; I25.10 Atherosclerotic heart disease of native coronary artery without angina pectoris; Z95.5 Presence of coronary angioplasty implant and graft; Z79.899 Other long term (current) drug therapy; Z79.84 Long term (current) use of oral hypoglycemic drugs
CPT/HCPCS: 82948-90; 83036-90; Z7610